=== PATIENT | male | born 1985 | race African-American/Black ===

== ENCOUNTER 2023-05-23 14:37 | Emergency (ER) | payer OTHER, SELFPAY ==
[2023-05-23] VITALS (11 sets, daily range): BP systolic 132–147; BP diastolic 88–109; PULSE 92–126; RESP 5–20; O2SAT 94–99; BMI 45.0
--- NOTE | 2023-05-23 14:48 | ECG_ITS ---
[facility] Test Date: 2023-05-23 Pat Name: ALEJANDRO WILBURN Department: Room: - Gender: Male Pearl Hand: : 1985 Requested By: Order Number: [id number] Reading MD: AHMET RUIZ Measurements Intervals [place] Rate: 125 P: 191 IN: 196 QRS: 151 QRSD: 98 T: 15 QT: 314 QTc: 388 Interpretive Statements Sinus tachycardia 2440 Incomplete right bundle branch block 5120 Possible right ventricular hypertrophy 9150 abnormal ECG No previous ECG available for comparison Electronically Signed On 05-24-2023 7:05:45 EDT by AHMET RUIZ
--- NOTE | 2023-05-23 15:12 | ED_ITS ---
HPI - Arrhythmia/Palpitations General Chief Complaint: Arrhythmia/Palpitations Stated Complaint: FAST HEART RATE Time Seen by Provider: 05/23/23 14:47 Source: patient Mode of arrival: walk-in Limitations: no limitations History of Present Illness HPI narrative: patient is a 37-year-old male who presents to the emergency department with a sensation of palpitations. Patient states he has a history of atrial flutter. 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 He states he developed atrial flutter 1st about ten years ago secondary to caffeine consumption. He states he was awoken from sleep after working midnight to a sensation that his heart is racing. He states it feels similar to previous episodes of atrial flutter. He denies chest pain. He has had minimal shortness of breath. No peripheral edema. No recent illness, fevers, vomiting. He denies any stimulant use, slhl-ped-pzijyns medications. Related Data Home Medications Medication Instructions Recorded Confirmed No Known Home Medications 05/23/23 05/23/23 Allergies Allergy/AdvReac Type Severity Reaction Status Date / Time No Known Drug Allergies Allergy Verified 05/23/23 14:45 Review of Systems ROS Constitutional Denies: fever or chills Ears, nose, mouth, and throat Denies: throat pain Cardiovascular Reports: palpitations; Denies: chest pain Respiratory Reports: shortness of breath Gastrointestinal Denies: nausea or vomiting Genitourinary Denies: painful urination Musculoskeletal Denies: back pain Integumentary/Breast Denies: rash Neurological Denies: headache PFSH PFSH Social History Smoking status: Never smoker Exam Narrative Exam Narrative: Gen.: Awake, alert, in no distress Head: Normocephalic, atraumatic ENT: Moist mucous membranes Respiratory: No respiratory distress, lungs clear bilaterally Cardio: tachycardia Gastrointestinal: Abdomen is soft, nondistended and nontender to palpation Extremities: Moves extremities equally, no injuries noted Psych: Normal mood and affect Neuro: No focal neuro deficit Skin: Warm, dry, intact Constitutional Vital Signs, click to edit/add: Last Vital Signs Pulse 110 H 05/23/23 15:20 Resp 20 05/23/23 15:20 BP 147/92 H 05/23/23 15:35 Pulse Ox 99 05/23/23 14:42 O2 Del Method Room Air 05/23/23 14:42 Course Vital Signs Vital signs: Vital Signs Pulse Rate 123 H 05/23/23 14:42 Respiratory Rate 20 05/23/23 14:42 Blood Pressure 140/109 H 05/23/23 14:42 Pulse Oximetry 99 05/23/23 14:42 Oxygen Delivery Method Room Air 05/23/23 14:42 Pulse Rate 110 H 05/23/23 15:20 Respiratory Rate 20 05/23/23 15:20 Blood Pressure 147/92 H 05/23/23 15:35 Pulse Oximetry 99 05/23/23 14:42 Oxygen Delivery Method Room Air 05/23/23 14:42 MDM - Arrhythmia/Palpitations MDM Narrative Medical decision making narrative: patient treated with IV fluids, IV Cardizem with improvement, patient has converted to sinus rhythm. Repeat EKG shows sinus tachycardia with studies are within normal limits. Patient given IV fluids as well. Patient has had symptoms for two hours, he should follow-up closely with his employment training specialist and return to the Emergency Room if symptoms change or worsen. He was reevaluated by attending physician prior to discharge. Medical Records Attestation: I reviewed the patient's medical records. Lab Data Attestation: I reviewed the patient's lab results. Labs: Lab Results 05/23/23 Range/Units 15:24 WBC 10.8 (4.0-11.0) 10^3/uL RBC 4.94 (4.70-6.10) 10^6/uL Hgb 15.3 (14.0-18.0) g/dL Hct 45.4 (42.0-54.0) % MCV 91.9 (80.0-94.0) fL MCH 31.0 (25.9-34.0) pg MCHC 33.7 (29.9-35.2) g/dL RDW 13.2 (11.0-15.0) % Plt Count 266 (150-450) 10^3/uL MPV 9.7 (9.5-13.5) fL Neut % (Auto) 60.0 (43.0-75.0) % Lymph % (Auto) 30.8 (20.5-60.0) % [place] % (Auto) 6.0 (1.7-12.0) % Eos % (Auto) 2.2 (0.9-7.0) % Baso % (Auto) 0.5 (0.2-2.0) % Neut # (Auto) 6.5 (1.4-6.5) 10^3/uL Lymph # (Auto) 3.3 (1.2-3.8) 10^3/uL [place] # (Auto) 0.7 (0.3-0.8) 10^3/uL Eos # (Auto) 0.2 (0.0-0.7) 10^3/uL Baso # (Auto) 0.1 (0.0-0.1) 10^3/uL Abs Immat Gran (auto) 0.05 H (0.00-0.03) 10^3/uL Imm/Tot Granulo (auto) 0.5 (0.0-0.5) % ECG Data Attestation: I personally reviewed and interpreted this ECG as follows: (rapid atrial rhythm at a rate of 125, no acute ST elevation. No ectopy. EKG reviewed by attending physician) ECG interpretation date: 05/23/23 ECG interpretation time: 15:16 Discharge Plan Discharge Chief Complaint: Arrhythmia/Palpitations Clinical Impression: Palpitations, Atrial flutter Patient Disposition: Home, Self-Care Time of Disposition Decision: 16:34 Condition: Good Prescriptions / Home Meds: No Action No Known Home Medications Instructions: Atrial Flutter (ED), Heart Palpitations (ED) Additional Instructions: Follow up with your employment training specialist Stand Alone Forms: Portal Instructions Referrals: Physician,Non-Staff, MD [Primary Care Provider] - 1 week
[2023-05-23 15:34] LABS: Basophils Absolute Auto 0.1 10^3/uL (0.0-0.1); Basophils Percent Auto 0.5 % (0.2-2.0); Eosinophils Absolute Auto 0.2 10^3/uL (0.0-0.7); Eosinophils Percent Auto 2.2 % (0.9-7.0); Hematocrit 45.4 % (42.0-54.0); Hemoglobin 15.3 g/dL (14.0-18.0); Immature Granulocytes Abs Auto 0.05 10^3/uL (0.00-0.03); Immature Granulocytes Pct Auto 0.5 % (0.0-0.5); Lymphocytes Absolute Auto 3.3 10^3/uL (1.2-3.8); Lymphocytes Percent Auto 30.8 % (20.5-60.0); Mean Corpuscular HGB Conc 33.7 g/dL (29.9-35.2); Mean Corpuscular Volume 91.9 fL (80.0-94.0); Mean Platelet Volume 9.7 fL (9.5-13.5); Monocytes Absolute Auto 0.7 10^3/uL (0.3-0.8); Neutrophils Absolute Auto 6.5 10^3/uL (1.4-6.5); Platelet Count 266 10^3/uL (150-450); Red Blood Count 4.94 10^6/uL (4.70-6.10); Red Cell Distribution Width 13.2 % (11.0-15.0); White Blood Count 10.8 10^3/uL (4.0-11.0)
[2023-05-23] MEDS: DILTIAZEM HCL 25 MG/5 ML VIAL 20 MG IV (15:35)
[2023-05-23] MEDS: 0.9 % SODIUM CHLORIDE 1,000 ML 1000 ML IV (15:37)
[2023-05-23 15:51] LABS: INR 0.97; Partial Thromboplastin Time 28.5 sec (22.3-36.2); Prothrombin Time 10.3 sec (9.0-11.6)
[2023-05-23 16:00] LABS: Alanine Aminotransferase 55 U/L (16-63); Alkaline Phosphatase 91 U/L (46-116); Aspartate Amino Transferase 32 U/L (15-37); BUN Creatinine Ratio 13.3; Bilirubin Total 0.5 mg/dL (0.2-1.0); Calcium 8.8 mg/dL (8.5-10.1); Carbon Dioxide 28.8 mmol/L (21.0-32.0); Chloride 102 mmol/L (98-107); Estimated GFR (African America >60 (>=60); Estimated GFR (Non-African Ame >60 (>=60); Globulin 4.2 g/dL; Glucose 89 mg/dL (74-106); Potassium 3.8 mmol/L (3.5-5.1); Sodium 140 mmol/L (136-145); Total Protein 8.2 g/dL (6.4-8.2); Troponin I High Sensitivity 19.9 pg/mL (4.0-76.1)
--- NOTE | 2023-05-23 17:30 | ECG_ITS ---
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
== END 2023-05-23 16:44 | disposition home or self-care (01) ==
PROVIDERS: Physician Assistant; Emergency Provider Emergency Medicine
DX: R00.2 Palpitations (principal); I48.92 Unspecified atrial flutter
CPT/HCPCS: 36415; 80053; 84484; 85025; 85610; 85730; 93005; 96374; 99284

== ENCOUNTER 2023-10-06 19:32 | Observation (INO) | payer OTHER, SELFPAY ==
[2023-10-06] VITALS (35 sets, daily range): BP systolic 103–166; BP diastolic 58–115; PULSE 78–141; RESP 7–36; TEMP 36.7–36.8; O2SAT 93–98; BMI 42.7; BMI 47.0
--- NOTE | 2023-10-06 19:47 | XR_ITS ---
The [address] [address] Patient Name: ALEJANDRO WILBURN MRN: [id number] date: 1985 Sex: M Assigned Patient Location: ED.MAIN Current Patient Location: ER Accession/Order Number: [id number] Exam Date: 10/06/2023 20:15 Report Date: 10/06/2023 21:05 At the request of: JOSE RAMON STOTU Procedure: XR chest 1V EXAMINATION: XR chest 1V HISTORY: Arrhythmia COMPARISON: None. TECHNIQUE: Portable chest FINDINGS: The lung parenchyma is free of consolidation or infiltrate. No pneumothorax or pleural effusion. The cardiac, mediastinal and hilar contours are normal. The visualized osseous structures exhibit no gross abnormality. XR/XR chest 1V IMPRESSION: No acute cardiopulmonary abnormality. Electronically authenticated by: JOSSE MELCHOR Date: 10/06/2023 21:05
--- NOTE | 2023-10-06 19:47 | ECG_ITS ---
The [facility] Test Date: 2023-10-06 Pat Name: ALEJANDRO WILBURN Department: Room: - Gender: Male Hand Icer: : 1985 Requested By: Order Number: [id number] Reading MD: AHMET RUIZ Measurements Intervals [place] Rate: 134 P: 239 [place]: 172 QRS: 171 QRSD: 96 T: 52 QT: 332 QTc: 411 Interpretive Statements Sinus tachycardia 5120 Possible right ventricular hypertrophy 8003 Consistent with pulmonary disease 9150 abnormal ECG Electronically Signed On 10-07-2023 7:07:03 EST by AHMET RUIZ
--- NOTE | 2023-10-06 19:51 | ED_ITS ---
HPI - Arrhythmia/Palpitations General Chief Complaint: Arrhythmia/Palpitations Stated Complaint: ATRIAL FLUTTER Time Seen by Provider: 10/06/23 19:40 Source: patient Mode of arrival: walk-in Limitations: no limitations History of Present Illness HPI narrative: history of A. Flutter. Last episode 2013. Not on any medications and is followed by Cardiology once a year. Juanpablo developed palpitations similar to past A. flutter and came in . No chest pain, light headedness or dyspnea. Feels well except for the palpitations MD complaint: Reports heart racing and palpitations Related Data Home Medications Medication Instructions Recorded Confirmed No Known Home Medications 05/23/23 05/23/23 Allergies Allergy/AdvReac Type Severity Reaction Status Date / Time No Known Drug Allergies Allergy Verified 05/23/23 14:45 Review of Systems ROS Status of ROS 10 or more systems reviewed and unremarkable except as noted in history and below [facility] Social History Smoking status: Never smoker Exam Constitutional Vital Signs, click to edit/add: Last Vital Signs Temp 98.3 F 10/06/23 19:34 Pulse 116 H 10/06/23 21:46 Resp 17 10/06/23 21:46 BP 118/78 10/06/23 21:46 Pulse Ox 98 10/06/23 19:51 O2 Del Method Room Air 10/06/23 19:50 Common normals: no apparent distress, oriented x3, no limitations, healthy appearing, alert and well nourished [facility] Common normals: normocephalic and head/scalp atraumatic Eye Common normals: EOMs intact bilaterally and conjunctivae normal Chest Common normals: inspection of chest normal and palpation of chest normal Respiratory Common normals: normal respiratory effort, no retractions, no use of accessory muscles and clear to auscultation bilaterally Cardio Common normals: S1 normal heart sound and S2 normal heart sound Rate: tachycardic GI Common normals: Normal to inspection, nondistended, normoactive bowel sounds present, soft to palpation and non-tender Extremity Common normals: normal to inspection and full ROM Neuro Common normals: oriented x3, CN's II-XII intact bilaterally, moves all extremities, no focal motor deficits and no sensory deficits noted Psych Appearance: grossly normal Course Vital Signs Vital signs: Vital Signs Temperature 98.3 F 10/06/23 19:34 Pulse Rate 111 H 10/06/23 19:34 Respiratory Rate 18 10/06/23 19:34 Blood Pressure 166/115 H 10/06/23 19:34 Pulse Oximetry 98 10/06/23 19:34 Oxygen Delivery Method Room Air 10/06/23 19:34 Temperature 98.3 F 10/06/23 19:34 Pulse Rate 116 H 10/06/23 21:46 Respiratory Rate 17 10/06/23 21:46 Blood Pressure 118/78 10/06/23 21:46 Pulse Oximetry 98 10/06/23 19:51 Oxygen Delivery Method Room Air 10/06/23 19:50 MDM - Arrhythmia/Palpitations MDM Narrative Medical decision making narrative: patient has past history of A. Flutter. presents tonight after onset of palpitations in his chest. EKG with A. Flutter rate 130. Patient otherwise asymptomatic. treated with diltiazem bolus and drip. TFTs normal. Troponin x 2 net. cxray clear. Admitted to hospitalist service Lab Data Labs: Lab Results 10/06/23 Range/Units 19:45 WBC 9.1 (4.0-11.0) 10^3/uL RBC 4.78 (4.70-6.10) 10^6/uL Hgb 14.8 (14.0-18.0) g/dL Hct 45.8 (42.0-54.0) % MCV 95.8 H (80.0-94.0) fL MCH 31.0 (25.9-34.0) pg MCHC 32.3 (29.9-35.2) g/dL RDW 12.8 (11.0-15.0) % Plt Count 240 (150-450) 10^3/uL MPV 9.6 (9.5-13.5) fL Neut % (Auto) 58.9 (43.0-75.0) % Lymph % (Auto) 34.5 (20.5-60.0) % [facility] % (Auto) 3.6 (1.7-12.0) % Eos % (Auto) 2.3 (0.9-7.0) % Baso % (Auto) 0.3 (0.2-2.0) % Neut # (Auto) 5.3 (1.4-6.5) 10^3/uL Lymph # (Auto) 3.1 (1.2-3.8) 10^3/uL [facility] # (Auto) 0.3 (0.3-0.8) 10^3/uL Eos # (Auto) 0.2 (0.0-0.7) 10^3/uL Baso # (Auto) 0.0 (0.0-0.1) 10^3/uL Abs Immat Gran (auto) 0.04 H (0.00-0.03) 10^3/uL Imm/Tot Granulo (auto) 0.4 (0.0-0.5) % Sodium 139 (136-145) mmol/L Potassium 3.7 (3.5-5.1) mmol/L Chloride 103 (98-107) mmol/L Carbon Dioxide 28.9 (21.0-32.0) mmol/L Anion Gap 10.8 BUN 11.0 (7.0-18.0) mg/dL Creatinine 1.04 (0.70-1.30) mg/dL Est GFR ( Amer) >60 (>=60) Est GFR (Non-Af Amer) >60 (>=60) BUN/Creatinine Ratio 10.6 Glucose 225 H (74-106) mg/dL Calcium 8.6 (8.5-10.1) mg/dL Troponin I High Sens 19.9 (4.0-76.1) pg/mL TSH 1.400 (0.358-3.740) uIU/mL Free T4 0.93 (0.76-1.46) ng/dL Discharge Plan Discharge Chief Complaint: Arrhythmia/Palpitations Clinical Impression: Atrial flutter Patient Disposition: Admitted as Observation
[2023-10-06 19:53] LABS: Basophils Percent Auto 0.3 % (0.2-2.0); Eosinophils Absolute Auto 0.2 10^3/uL (0.0-0.7); Eosinophils Percent Auto 2.3 % (0.9-7.0); Hematocrit 45.8 % (42.0-54.0); Hemoglobin 14.8 g/dL (14.0-18.0); Immature Granulocytes Abs Auto 0.04 10^3/uL (0.00-0.03); Immature Granulocytes Pct Auto 0.4 % (0.0-0.5); Lymphocytes Absolute Auto 3.1 10^3/uL (1.2-3.8); Lymphocytes Percent Auto 34.5 % (20.5-60.0); Mean Corpuscular HGB Conc 32.3 g/dL (29.9-35.2); Mean Corpuscular Volume 95.8 fL (80.0-94.0); Mean Platelet Volume 9.6 fL (9.5-13.5); Monocytes Absolute Auto 0.3 10^3/uL (0.3-0.8); Monocytes Percent Auto 3.6 % (1.7-12.0); Neutrophils Absolute Auto 5.3 10^3/uL (1.4-6.5); Neutrophils Percent Auto 58.9 % (43.0-75.0); Platelet Count 240 10^3/uL (150-450); Red Blood Count 4.78 10^6/uL (4.70-6.10); Red Cell Distribution Width 12.8 % (11.0-15.0); White Blood Count 9.1 10^3/uL (4.0-11.0)
[2023-10-06] MEDS: DILTIAZEM HCL 25 MG/5 ML VIAL 20 MG IV (20:00)
--- NOTE | 2023-10-06 20:05 | ECG_ITS ---
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
[2023-10-06 20:10] LABS: Free T4 0.93 ng/dL (0.76-1.46)
[2023-10-06 20:16] LABS: Anion Gap 10.8; BUN Creatinine Ratio 10.6; Calcium 8.6 mg/dL (8.5-10.1); Carbon Dioxide 28.9 mmol/L (21.0-32.0); Chloride 103 mmol/L (98-107); Estimated GFR (African America >60 (>=60); Estimated GFR (Non-African Ame >60 (>=60); Glucose 225 mg/dL (74-106); Potassium 3.7 mmol/L (3.5-5.1); Sodium 139 mmol/L (136-145); Troponin I High Sensitivity 19.9 pg/mL (4.0-76.1)
[2023-10-06] MEDS: dilTIAZem HCL 125 MG in 0.9 % SODIUM CHLORIDE 100 ML IV (20:37)
--- NOTE | 2023-10-06 22:01 | PC.NURSE ---
Report called to Eleni in ICU
--- NOTE | 2023-10-06 22:15 | ECG_ITS ---
The [facility] Test Date: 2023-10-07 Pat Name: ALEJANDRO WILBURN Department: Room: [facility] Gender: Male Patient Observer: : 1985 Requested By: [id number] Order Number: [id number] Reading MD: AHMET RUIZ Measurements Intervals [place] Rate: 93 P: 270 NM: 174 QRS: 145 QRSD: 106 T: 56 QT: 396 QTc: 447 Interpretive Statements Atrial fib-flutter 5120 Possible right ventricular hypertrophy 9140 abnormal rhythm ECG Compared to ECG 10/06/2023 20:04:04 No significant changes Electronically Signed On 10-07-2023 7:10:04 EST by AHMET RUIZ
--- NOTE | 2023-10-06 22:48 | P.PN_ITS ---
Progress Note: Subjective Subjective Interval history: PAtient was consuming a smoothie at about 6:45pm and felt palpitations similar to prior episode of aflutter earlier this year. he knew from his first and only other episode in 2013 what it was and came to ED. Found in RVR was given bolus of diltiazem for rate > 130. however, tachycardia persisted and he arrives to the floor with a HR of 104bpm on a rate of 15mg/hr. His palpitations have resolved and he otherwise has no complaints. 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 the patient notes the other episode this year also happened after a smoothie. He currently follows with cardiology in [facility] once per year (dry pan charger moved from [facility] and patient followed her). He is not on rate control med or anticoagulant. SH: negative past or present for drugs, alcohol or tobacco. PMH: obesity; otherwise aflutter ROS: negative other than acute onset tonight. No recent long car/air travel, no shortness of breath. PCP is in [facility] and patient forgets the name. Exam Constitutional Vital Signs, click to edit/add: Last Vital Signs Temp 98.3 F 10/06/23 19:34 Pulse 105 H 10/06/23 22:23 Resp 17 10/06/23 21:46 BP 118/78 10/06/23 21:46 Pulse Ox 98 10/06/23 19:51 O2 Del Method Room Air 10/06/23 19:50 Common normals: no apparent distress [facility] Common normals: normocephalic Chest Common normals: inspection of chest normal Respiratory Common normals: normal respiratory effort, no use of accessory muscles and clear to auscultation bilaterally Cardio Other: tachycardia and irregular GI Common normals: soft to palpation Neuro Common normals: oriented x3 Other: awake, pleaseant and in no distress. Progress Note: Objective Labs Labs: Short CBC 10/06/23 Range/Units 19:45 WBC 9.1 (4.0-11.0) 10^3/uL Hgb 14.8 (14.0-18.0) g/dL Hct 45.8 (42.0-54.0) % Plt Count 240 (150-450) 10^3/uL BMP 10/06/23 19:45 Sodium 139 Potassium 3.7 Chloride 103 Carbon Dioxide 28.9 BUN 11.0 Creatinine 1.04 Glucose 225 H Calcium 8.6 Progress Note: A&P Assessment and Plan (1) Atrial flutter: Assessment and Plan: I will add Cardiazem CD 180mg in hopes of backing off on his rate with the drip. For tonight i have placed anticoagulant for dvt propylaxis. Regular management at this time as he does not have other comorbidities, is hemodynamically stable and is in no distress. GI propylaxis added. Elevated glucose normal which may be long standing or due to smoothie he had just before coming to ED. He is a full code and i have placed in him in OBS status. Telemedicine Attestation Telemedicine Attestation I conducted this encounter from [[facility] office] via secure live, [id number] video conference with the patient, located at [facility] with [seth HAMLIN]. Prior to the interview, the risks and benefits of telemedicine were discussed with the patient and verbal consent was obtained.
[2023-10-06] MEDS: DILTIAZEM HCL 180 MG CAP.ER.24H PO (23:55)
[2023-10-06] MEDS: ENOXAPARIN SODIUM 40 MG/0.4 ML SYRINGE SUBQ (23:55)
[2023-10-07] VITALS (48 sets, daily range): BP systolic 103–147; BP diastolic 65–95; PULSE 70–125; RESP 0–30; TEMP 36.8; O2SAT 92–98
[2023-10-07 04:35] LABS: Basophils Absolute Auto 0.1 10^3/uL (0.0-0.1); Basophils Percent Auto 0.5 % (0.2-2.0); Eosinophils Absolute Auto 0.2 10^3/uL (0.0-0.7); Eosinophils Percent Auto 1.7 % (0.9-7.0); Hematocrit 44.2 % (42.0-54.0); Hemoglobin 14.5 g/dL (14.0-18.0); Immature Granulocytes Abs Auto 0.03 10^3/uL (0.00-0.03); Immature Granulocytes Pct Auto 0.3 % (0.0-0.5); Lymphocytes Absolute Auto 3.2 10^3/uL (1.2-3.8); Lymphocytes Percent Auto 32.3 % (20.5-60.0); Mean Corpuscular HGB Conc 32.8 g/dL (29.9-35.2); Mean Corpuscular Volume 94.6 fL (80.0-94.0); Mean Platelet Volume 9.8 fL (9.5-13.5); Monocytes Absolute Auto 0.4 10^3/uL (0.3-0.8); Monocytes Percent Auto 4.2 % (1.7-12.0); Platelet Count 258 10^3/uL (150-450); Red Blood Count 4.67 10^6/uL (4.70-6.10); White Blood Count 9.8 10^3/uL (4.0-11.0)
[2023-10-07 05:23] LABS: Alanine Aminotransferase 82 U/L (16-63); Albumin Globulin Ratio 0.9; Albumin Level 3.4 g/dL (3.4-5.0); Alkaline Phosphatase 78 U/L (46-116); Anion Gap 9.3; Aspartate Amino Transferase 46 U/L (15-37); BUN Creatinine Ratio 12.2; Bilirubin Total 0.6 mg/dL (0.2-1.0); Calcium 8.7 mg/dL (8.5-10.1); Carbon Dioxide 29.5 mmol/L (21.0-32.0); Chloride 103 mmol/L (98-107); Estimated GFR (African America >60 (>=60); Estimated GFR (Non-African Ame >60 (>=60); Globulin 3.9 g/dL; Glucose 120 mg/dL (74-106); Potassium 3.8 mmol/L (3.5-5.1); Sodium 138 mmol/L (136-145); Total Protein 7.3 g/dL (6.4-8.2)
--- NOTE | 2023-10-07 09:08 | CM.NOTE ---
Rounding with Dr. Lawson and patient's RN Hugo. Discussed following up with cardiology after discharge and possible echocardiogram today.
--- NOTE | 2023-10-07 09:19 | CA_ITS ---
Patient Name: ALEJANDRO WILBURN MR#: [id number] : 1985 Exam Date: 10/07/2023 Ordering Doctor: DR Evan Lawson . ECHOCARDIOGRAM REPORT PROCEDURE: CA ECHO DOPPLER COMPLETE INDICATIONS: Atrial fib/flutter, obstructive sleep apnea COMPARISON: None. DESCRIPTION: COMPLETE ECHOCARDIOGRAM Real-time transthoracic echocardiography with 2D, M-mode, spectral and color flow Doppler performed. QUALITY: Technically difficult due to patients condition. 76 , 385# , BSA 2.93 m2 LEFT VENTRICLE: Normal chamber size. Normal left ventricular wall thickness. Systolic function is difficult to assess due to poor sound transmission but appears preserved. LV EF: Normal left ventricular ejection fraction, (55%). DIASTOLIC: ATRIAL SEPTUM: LEFT ATRIUM: Normal chamber size. RIGHT ATRIUM: Normal chamber size. RIGHT VENTRICLE: Normal chamber size. TRICUSPID VALVE: Normal mobility and thickness. No stenosis with no regurgitation. MITRAL VALVE: Normal mobility and thickness. No evidence of mitral valve stenosis. There is no mitral annular calcification. No mitral regurgitation. AORTIC VALVE: Normal trileaflet appearance. No visible sclerosis. Normal leaflet mobility. No evidence of aortic valve stenosis. No aortic regurgitation. AORTIC ROOT: Normal diameter and appearance. PULMONIC VALVE: Not well visualized. No stenosis. No regurgitation. PERICARDIUM: No evidence of pericardial effusion. IVC: Not well visualized. PLEURA: CONCLUSION: 1. Normal ventricular systolic function. 2. No significant valvular dysfunction. 3. Technically difficult study with poor sound transmission. Adult Echocardiography Procedure Report Left Ventricle LVEDD (3.7 - 5.6 cm): 4.82 cm LVESD (2.2 - 4.0 cm): 3.22 cm LVIVS thickness (0.6 - 1.2 cm): 0.86 cm LVPW thickness (0.5 - 1.0 cm): 0.86 cm LVOT Max Gradient: 1.11 mm[Hg] LVOT Area (cm2): 0.53 m/s Peak Velocity (LVOT): 0.53 m/s LVOT Diameter 2.52 cm Left Atrium Left Atrium Systolic Dimension: 3.33 cm Mitral Valve MV E to A Ratio: 0.86 Mitral Valve A-Wave Peak Velocity: 0.45 m/s Mitral Valve E-Wave Peak Velocity: 0.38 m/s Right Ventricle Aorta AO Root Diam: 3.36 cm Ascending Ao Diam: 3.04 cm Aortic Valve AoV Area (Peak Jonas): 4.18 cm2, 4.18 cm2 Peak Velocity(Antegrade Flow): 0.63 m/s Peak Gradient(Antegrade Flow): 1.57 mm[Hg] Tricuspid Valve Pulmonic Valve Peak Velocity: 0.87 m/s Peak Gradient: 3.06 mm[Hg], 3.01 mm[Hg] Right Atrium Dictated by: Ceasar Lipscomb M.D. on 10/07/2023 at 19:29 Approved by: Ceasar Lipscomb M.D. on 10/07/2023 at 19:33
[2023-10-07] MEDS: OMEPRAZOLE 20 MG CAPSULE.DR PO (09:47)
[2023-10-07] MEDS: APIXABAN 5 MG TABLET PO (09:47)
[2023-10-07] MEDS: METOPROLOL TARTRATE 50 MG TABLET PO (09:47)
--- NOTE | 2023-10-07 10:04 | CM.NOTE ---
Pt will discharge on Eliquis, pt given 30 day free trial card and 10 dollar co-pay card for assistance.
--- NOTE | 2023-10-07 11:12 | P.HP_ITS ---
H&P: HPI History of Present Illness Chief complaint: Palpitations Narrative: 38 year old male with a history of atrial flutter presents to ER with palpitations. First episode about 10 years ago and prior ROBBI cardioversion. Not on medication and follows with cardiology once a year. Similar episode in May and converted with IV cardizem in ER. [place] heart racing and skipping this evening. No chest pain or tightness. No SOB and not lightheaded. [place] like prior episodes and to ER. EKG confirmed rapid aflutter and given IV cardizem. Continued to have tachycardia and started drip then admitted. Denies alcohol use or excess caffeine. Sleep study about 10 years ago showed mild QUINTEN but never treated with PAP therapy. Review of Systems ROS Constitutional Denies: fever, chills or night sweats Cardiovascular Reports: palpitations; Denies: chest pain, edema or lightheadedness Respiratory Denies: shortness of breath, cough or wheezing Gastrointestinal Denies: abdominal pain, nausea, vomiting or diarrhea Genitourinary Denies: painful urination PFSH [facility] Medical History (Updated 10/07/23 @ 07:59 by Evan Lawson MD) Afib ?I48.91 - Unspecified atrial fibrillation (ICD-10) Atrial flutter ?I48.92 - Unspecified atrial flutter (ICD-10) Palpitations ?R00.2 - Palpitations (ICD-10) Paroxysmal atrial flutter ?I48.92 - Unspecified atrial flutter (ICD-10) Family History (Updated 10/06/23 @ 23:20 by Eleni Jeffrey RN) Father Family history of diabetes mellitus Other Family history of COPD (chronic obstructive pulmonary disease) Social History Smoking status: Never smoker Highest level of school completed/degree received: Associate degree: occupational, technical, vocational program Meds Home Medications and Allergies Home Medications Medication Instructions Recorded Confirmed Type No Known Home Medications 05/23/23 05/23/23 History Allergies Allergy/AdvReac Type Severity Reaction Status Date / Time No Known Drug Allergies Allergy Verified 05/23/23 14:45 Exam Constitutional Vital Signs, click to edit/add: Last Vital Signs Temp 98.2 F 10/07/23 10:04 Pulse 96 H 10/07/23 10:00 Resp 18 10/07/23 07:50 BP 145/92 H 10/07/23 07:01 Pulse Ox 94 L 10/07/23 08:00 O2 Del Method Room Air 10/06/23 22:23 Documenting provider has reviewed patient's vital signs: yes Common normals: no apparent distress, oriented x3 and alert HENMT Common normals: normocephalic Eye Common normals: PERRL and EOMs intact bilaterally Respiratory Common normals: normal respiratory effort and clear to auscultation bilaterally Cardio Common normals: no gallops, no murmurs and no rub Rhythm: abnormal rhythm irregularly irregular GI Common normals: Normal to inspection, nondistended, normoactive bowel sounds present and non-tender Extremity Common normals: no pedal edema Results Labs Labs: Short CBC 10/06/23 10/07/23 Range/Units 19:45 04:06 WBC 9.1 9.8 (4.0-11.0) 10^3/uL Hgb 14.8 14.5 (14.0-18.0) g/dL Hct 45.8 44.2 (42.0-54.0) % Plt Count 240 258 (150-450) 10^3/uL BMP 10/06/23 10/07/23 19:45 04:06 Sodium 139 138 Potassium 3.7 3.8 Chloride 103 103 Carbon Dioxide 28.9 29.5 BUN 11.0 9.0 Creatinine 1.04 0.74 Glucose 225 H 120 H Calcium 8.6 8.7 Liver Function 10/07/23 Range/Units 04:06 Total Bilirubin 0.6 (0.2-1.0) mg/dL AST 46 H (15-37) U/L ALT 82 H (16-63) U/L Alkaline Phosphatase 78 (46-116) U/L Albumin 3.4 (3.4-5.0) g/dL Assessment and Plan Assessment and Plan (1) Atrial flutter with rapid ventricular response: (2) QUINTEN (obstructive sleep apnea): (3) Morbid obesity: Plan Presented with rapid flutter on cardizem. Gave oral metoprolol and stopped drip. Echo ordered. Started oral eliquis. Gave dose IV metoprolol. Rate controlled with oral medication and patient felt well. Not lightheaded and rate remained controlled. Discharged home on oral metoprolol and eliquis. F/u with cardiology in 1 week.
[2023-10-07] MEDS: METOPROLOL TARTRATE 5 MG/5 ML VIAL IVP (11:32)
--- NOTE | 2023-10-07 12:53 | ECG_ITS ---
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
== END 2023-10-07 13:17 | disposition home or self-care (01) ==
LOC: ER 22:06 → ICU 22:13
PROVIDERS: Admitting Provider Family Medicine; Emergency Provider Internal Medicine; Visit Provider Family Medicine
DX: I48.92 Unspecified atrial flutter (principal); G47.33 Obstructive sleep apnea (adult) (pediatric); E66.01 Morbid (severe) obesity due to excess calories; Z68.42 Body mass index [BMI] 45.0-49.9, adult
CPT/HCPCS: 36415; 71045; 80048; 80053; 83735; 84439; 84443; 84484; 85025; 93005; 93306; 96365; 96366; 96372; 96375; 96376; 99285; G0378; Q3014

== ENCOUNTER 2025-04-25 07:42 | Outpatient (OUT) | payer OTHER, SELFPAY ==
--- OUTSIDE RECORDS SUMMARY | 2023-03-07 04:00 | XMS_ITS | Continuity of Care Document ---
Author Organization [facility] Address [address] [place] [address] Phone Care Team Providers [facility] R[facility] Name Role Phone Cedric Sydney SALAZARan Unavailable Unavaila ble Allergies, Adverse Reactions, Alerts Substance Reaction Status Criticality No Known Allergies Active No Inform ation Procedures Procedure Date PREV VISIT, EST, AGE 18-39 OFFICE/OUTPATIENT VISIT, EST SURGERY FOR VULVA LESION OFFICE/OUTPATIENT VISIT, EST BACTRIM DS 800 MG /160 MG (6TABLETS) Nov URINE TEST PREV VISIT, EST, AGE 18-39 Sprintec OFFICE/OUTPATIENT VISIT, EST URINE TEST PREV VISIT, EST, AGE 18-39 OFFICE/OUTPATIENT VISIT, EST URINE TEST URINALYSIS NONAUTO W/O SCOPE OFFICE/OUTPATIENT VISIT, EST OFFICE/OUTPATIENT VISIT, EST PREV VISIT, EST, AGE 18-39 EST FP MEDICAID Depo Provera 1 Ml OFFICE/OUTPATIENT VISIT, EST OFFICE/OUTPATIENT VISIT, EST Depo Provera 1 Ml OFFICE/OUTPATIENT VISIT, EST OFFICE/OUTPATIENT VISIT, EST Depo Provera 1 Ml OFFICE/OUTPATIENT VISIT, EST OFFICE/OUTPATIENT VISIT, EST Depo Provera 1 Ml OFFICE/OUTPATIENT VISIT, EST Depo Provera 1 Ml PREV VISIT, EST, AGE 18-39 EST FP MEDICAID Depo Provera 1 Ml OFFICE/OUTPATIENT VISIT, EST OFFICE/OUTPATIENT VISIT, EST Depo Provera 1 Ml URINE TEST OFFICE/OUTPATIENT VISIT, EST OFFICE/OUTPATIENT VISIT, EST Depo Provera 1 Ml URINE TEST OFFICE/OUTPATIENT VISIT, EST URINALYSIS NONAUTO W/O SCOPE Bactrim Depo Provera 1 Ml URINE TEST OFFICE/OUTPATIENT VISIT, EST URINE TEST [facility] SPECIMEN HANDLING (GC/CHLAMYDIA) Jul URINE TEST NEW FP MEDICAID Intraoral-periapical 1st Film 3 Salegirua-pbbdzyrxjz-fjod Additional Jul Limited Oral Eval Bitewig-single Film Advance Directives Directive Yes / No Effective Date File Name No Information Encounters Encounter Description Practice Location Reason(s) For Visit Diagnoses Date Provider Providers Copied on Encounter [facility], [address] [place] [address], [id number] , tel: [phone] [facility] No Information 3 [facility] [address] [place] [address], [id number] , [place]. tel: [phone] PREV VISIT, EST, AGE 18-40 [facility], [address] [place] [address], [id number] , [place] tel: [phone] [facility] annual exam (chief complaint) Irregular periods- well woman with abnormal findingOther fatigueMenorrhagi aBody mass index [BMI] 45.0-49.9, adult 3 [facility] [place] [address], [place], [id number] , [place]. tel: [phone] OFFICE/OUTPA TIENT VISIT, [facility], [address], [place], [id number] , [place] tel: [phone] [facility] Office Visit (chief complaint) Body mass index (BMI) 45.0-49.9, adultCyst of Bartholin's gland 0 Visci DO Anthony. [address], [place], [id number] , [place]. tel: [phone] [facility], [address], [place], [id number] , [place] tel: [phone] [facility] Bartholin cyst (chief complaint) Body mass index (BMI) 45.0-49.9, adultCyst of Bartholin's gland 0 Visci DO Anthony. [address], [place], [id number] , [place]. tel: [phone] OFFICE/OUTPA TIENT VISIT, [facility], [address] [place] [address], [id number] , [place] tel: [phone] [facility] pelvic pain (chief complaint) Body mass index (BMI) 45.0-49.9, adultBartholin cyst 0 [facility] [place] [address], [place], [id number] , [place]. tel: [phone] PREV VISIT, EST, AGE 18-39 [facility], [address] [place] [address], [id number] , [place] tel: [phone] 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 [address], [place], [id number] , [place]. tel:[phone] OFFICE/OUTPA TIENT VISIT, [facility], [address], [place], [id number] , [place] tel: [phone] [facility] Bartholin Cyst Follow up (chief complaint) Body mass index (BMI) 45.0-49.9, adultBartholin cyst 9 [facility] [place] [address], [place], [id number] , [place]. tel: [phone] PREV VISIT, [facility], AGE 18-39 [facility], [address], [place], [id number] , [place] tel: [phone] 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 [address] [place] [address], [id number] , [place]. tel: [phone] OFFICE/OUTPA TIENT VISIT, [facility], [address] [place] [address], [id number] , [place] tel: [phone] [facility] test (chief complaint) Encounter for test, result negativeIrregular periods [facility] [place] [address] [place] [address], [id number] , [place]. tel: [phone] OFFICE/OUTPA TIENT VISIT, [facility], [address] [place] [address], [id number] , [place] tel: [phone] [facility] abnormal pap smear (chief complaint) ASCUS on pap smear of cervix [facility] [place] [address], [place], [id number] , [place]. tel: [phone] PREV VISIT, EST, AGE 18-39 [facility], [address], [place], [id number] , [place] tel: [phone] [facility] annual exam (chief complaint)cont raception (chief complaint) Encounter for surveillance of injectable contraceptiveEnco unter for general cold water machine operator exam without abnormal findingEncounter for STD screening 5 [facility] [place] [address], [place], [id number] , [place]. tel: [phone] OFFICE/OUTPA TIENT VISIT, [facility], [address], [place], [id number] , [place] tel: [phone] [facility] contraception (chief complaint) Other specified contraceptive management 5 [facility] [place] [address], [place], [id number] , [place]. tel: [phone] OFFICE/OUTPA TIENT VISIT, [facility], [address], [place], [id number] , [place] tel: [phone] [facility] contraception (chief complaint) Other specified contraceptive management 5 [facility] [place] [address], [place], [id number] , [place]. tel: [phone] OFFICE/OUTPA TIENT VISIT, [facility], [address], [place], [id number] , [place] tel: [phone] [facility] Depo Supply (chief complaint) Other specified contraceptive management 5 [facility] [place] [address], [place], [id number] , [place]. tel: [phone] OFFICE/OUTPA TIENT VISIT, [facility], [address] [place] [address], [id number] , [place] tel: [phone] [facility] Depo (chief complaint) Other specified contraceptive management Dec-3 0- 4 [facility] [place] [address], [place], [id number] , [place]. tel: [phone] PREV VISIT, EST, AGE 18-39 [facility], [address], [place], [id number] , [place] tel: [phone] [facility] annual visit (chief complaint) Gynecological ExaminationOther specified contraceptive management 0 7- 4 [facility] [place] [address], [place], [id number] , [place]. tel: [phone] OFFICE/OUTPA TIENT VISIT, [facility], [address], [place], [id number] , [place] tel: [phone] [facility] supply visit / depo (chief complaint) Other specified contraceptive management 4 [facility] [place] [address], [place], [id number] , [place]. tel: [phone] OFFICE/OUTPA TIENT VISIT, [facility], [address], [place], [id number] , [place] tel: [phone] [facility] control--Resta rt Depo (chief complaint) Other specified contraceptive management 8 4 [facility] [place] [address], [place], [id number] , [place]. tel: [phone] OFFICE/OUTPA TIENT VISIT, [facility], [address], [place], [id number] , [place] tel: [phone] [facility] urinary urgency (chief complaint) Urinary Tract InfectionOther specified contraceptive management - 4 Sangita Vargas. [address], [place], [id number] , [place]. tel: [phone] [facility], [address] [place] [address], [id number] , [place] tel: [phone] Dental Clinic Dental examination 3 Angus DMD February. [address], [place], [id number] , [place]. tel: [phone] OFFICE/OUTPA TIENT VISIT, EST [facility], [address] [place] [address], [id number] , [place] tel: [phone] [facility] control (chief complaint) Other specified contraceptive managementGeneral counseling on prescription of oral contraceptives 3 Dioni Calderón. [address] [place], [address], [place]. tel: [phone] [facility], [address] [place] [address], [id number] , [place] tel: [phone] [facility] annual visit (chief complaint) Gynecological ExaminationPregna ncy examination or test, negative result 3 Dioni Calderón. [address] [place], [address], [place]. tel: [phone] [facility], [address] [place] [address], [id number] , [place] tel: [phone] Dental Clinic Dental examination 3 Angus DMD February. [address], [place], [id number] , [place]. tel: [phone] Family History Family Member Type Diagnosis Age At Onset Nephew Problem (finding) Alive and well Father Problem (finding) hypertension Mother Problem (finding) multiple sclerosis Father Problem (finding) diabetes melli tus in first degree relative Brother Problem (finding) Heart disease Father Problem (finding) Alive and well Mother Problem (finding) hypertension Mother Problem (finding) diabetes melli tus in first degree relative Brother Problem (finding) Alive and well Sister Problem (finding) Alive and well Immunizations Vaccine Date Status Comments Hep A (adult) refused Source: New Im munization Record Influenza virus vaccine, quadrivalent, split virus, preservative free refused Source: New Immuniza tion Record Payers Payer name Insurance type Covered republican ID Authoriza tion(s) Medical [facility] [id number] Anthem Medicaid [id number] Medicaid Wrap - [employer] [id number] Self Pay Cap 09 [id number] Social History Type Description Quantity Date Captured Comments Alcohol Use Details Unknown Caffeine Use Details Unknown Tobacco Use Status No Information Smoking Status No Information Sex Female Sexual Orientation Straight or heterosexual Gender Identity Female Chief Complaint And Reason For Visit No Information Reason For Referral Reason For Referral No Information Plan Of Treatment Date Type Action Status Goal Influenza vaccine. Due on Ma due Goal PRAPARE ASSESSMENT. Due on M due Goal Hep A. Due on du e Goal Tdap. Due on due Goal Depression scree alirio. Due on due Goal Tdap Vaccine. Due on 2022 due Goal RLP. Due on due Goal RLP. Due on due Goal PRAPARE ASSESSMENT. Due on A due Goal Influenza vaccine. Due on Ap due Goal Depression scree alirio. Due on due Goal Tdap Vaccine. Due on 2022 due Goal Tdap. Due on due Goal Dietary manageme nt education, guidance, and counseling completed Goal Depression scree alirio. Due on due Goal Influenza vaccine. Due on due Goal Tdap. Due on due Goal RLP. Due on due Goal Dietary manageme nt education, guidance, and counseling completed Goal RLP. Due on due Goal Tdap. Due on due Goal Influenza vaccine. Due on due Goal Depression scree alirio. Due on due Goal Dietary manageme nt education, guidance, and counseling completed Goal Influenza vaccine. Due on due Goal Depression scree alirio. Due on due Goal RLP. Due on due Goal Tdap. Due on due Goal Dietary manageme nt education, guidance, and counseling completed Goal Depression scree alirio. Due on due Goal RLP. Due on due Goal Tdap. Due on due Goal Influenza vaccine. Due on due Goal Dietary manageme nt education, guidance, and counseling completed Goal RLP. Due on due Goal Tdap. Due on due Goal Depression scree alirio. Due on due Goal Influenza vaccine. Due on due Goal Dietary manageme nt education, guidance, and counseling completed Goal Tdap. Due on due Goal RLP. Due on due Goal Influenza vaccine. Due on due Goal Dietary manageme nt education, guidance, and counseling completed Goal Td vaccine. Due on 16 due Goal Tdap. Due on due Goal Tdap. Due on due Goal Td vaccine. Due on 16 due Goal Tdap. Due on due Goal Td vaccine. Due on 15 due Goal Depression scree alirio. Due on due Goal Depression scree alirio. Due on due Goal Tdap. Due on due Goal Td vaccine. Due on 15 due Goal Depression scree alirio. Due on due Goal Tdap. Due on due Goal Td vaccine. Due on due Goal Depression scree alirio. Due on due Goal Tdap. Due on due Goal Td vaccine. Due on 15 due Goal Depression scree alirio. Due on due Goal Tdap. Due on due Goal Td vaccine. Due on 14 due Goal Tobacco cessation counseling completed Future Order: Lab Order CBC With Differential/Platelet ([id number]), Collected on: Ordered Future Order: Lab Order TSH+Free T4 ([id number]), Collected on: Ordered History Of Present Illness Encounter Date Complaint History Of Prese nt Illness annual exam Currently pregna nt: no. : 1. induced: 1. Patient is not contemplating . The patient states she uses none for control. Last LMP was 02/01/2023. Her menses is irregular with heavy flow with constant frequency. Negative for dysmenorrhea and menorrhagia. Negative for: breast discharge, breast lump(s), breast pain and breast self exam. She does drink alcohol. Additional information: Patient is here for annual exam. States she has been having irregular menses since Aug 2022. She will bleed for prolong periods of time. This last menses started 02/01/23 and just started to lighten up today. She has been changing a pad every 2 hours for 20 days. She would like medication to regulate menses. She c/o increased fatigue and desires to have CBC and thyroid testing today. She has been abstinent for over 2 years and knows there is no chance of a .. Office Visit Bartholin cyst pelvic pain The patient is p remenopausal. Last menstrual period was 10/22/2019. Additional information: Patient is here for vaginal pain and discomfort. Has had a bartholin cyst in the past and believes she may have another one. Has had the discomfort for approx 2-3 weeks. Has been able to have an orgasm in the past, but for last 3 weeks has been unable to have one. Denies other HAND BUFFER problems at this time. annual exam Currently pregna nt: no. : 1. Parity: : 1. Patient is not contemplating . The patient states she uses oral contraceptive for control. Last LMP was 08/11/2019. Her menses is irregular with normal flow with a frequency of every 28 days. Negative for dysmenorrhea and menorrhagia. Negative for: breast discharge, breast lump(s), breast pain and breast self exam.Negative for Hormone replacement therapy. The patient does not use tobacco. She does drink alcohol. Additional information: Patient is here for annual exam. 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 Denies HAND BUFFER problems at this t cam. States she hasn't taken her OCPs since May and would like to restart. States she only had one menses in Aug without the pills. Has never had a child and is unsure if she desires children in the future. states she is currently not ready to have children. Bartholin Cyst Follow up Patient is here for follow up of a bartholin cyst. Was seen in the ER and a Word Cath was placed, but it fell out the same day. States this is the first time she has ever had a bartholin cyst. Was given 2 different antibiotics and has completed them both. annual exam Currently pregna nt: no. : 1. Parity: Pre-Term: 1. The patient states she uses none for control. Last LMP was 05/02/2018. The patient does not use tobacco. Tobacco cessation has been discussed. She does not drink alcohol. Additional information: Ezekiel is here for annual exam. Currently on OCps and desires to continue at this time. Desires HIV and RPR. Denies other HAND BUFFER problems at this time.. test Patient here for test. (-) result obtained. She is not desiring a . She has not had a period since 07/19/16. At home tests also showed negative. Patient states she is typically regular. ALESSIO Lopez test (comments) Cyndie harrison states she had menses every month until Jul. Now has not had a menses for 3 months. Home tests have all been normal. States she is not on BC because she is not very sexually active. States she is okay if a occurs. Desirs medication to regulate menses abnormal pap smear (comments) [facility] she has had a history of abn paps in the [facility], but it has been several years. abnormal pap smear Onset: sudden . Additional information: Patient had an abnormal pap 6 months ago, 09/29/15 ASCUS HPV-. -ALESSIO WALTERS. annual exam Currently pregna nt: no. The patient states she uses Depo-Provera for control. Last LMP was 09/18/2015. Her menses is with spotting flow with a frequency of q 3 months. There are no associated symptoms. She does not drink alcohol. Additional information: Presently on Depo. Would like to continue. Consent signed. Denies any problems or concerns today. --Jamel Lazar R.N. contraception Presently on Dep o. Desires to continue. Consent signed. Reports some light spotting about every 3 months. States that she is trying to get adequate calcium in diet. --Jamel Lazar R.N. contraception Client presents today for a Depo injection. Last injection. Education/written material provided on calcium. 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 Denies any problems/concerns at this time. Injected into LD, client tolerated without incident. Next scheduled appt 09/29/15 @0830, update/Depo.ALESSIO Patel contraception Patient here for Depo Provera injection. Patient states she is not having any issues or concerns at this time. Patient counciled on importance of taking calcium. Patient verbalized understanding. Patient scheduled to return 07/07/15 @ 8am. Alessio Yanes. Depo Supply Presents on time for Depo. Denies any problems or concerns. Calcium intake education provided. --Jamel Lazar R.N. Depo Supply visit/ de po. Depo IM. Denies concerns. Bradley Hernandez Functional Status Date Functional Assessmen t No Information Instructions Date Instruction Additional Infor lurdes Discussed heavy mens es and fatigue. recommend CBC and TSH to be completed. Patient declines BCM at this time, but would like to regulate with provera. Related to Menorrhagia Discussed irregular menses in detail and probable cause is anovulation. Recommend management with Provera. Rx for provera 10mg 1 tablet daily for 10 days each month day 16-25 of each cycle. # 10 with 12 refills. Related to Irregular periods Encouraged monthly B SE. Recommend calcium 1000mg QD. Encouraged good dietary intake and exercise. Laboratory specimens sent to lab. Patient to call in 2 weeks if desires results.Discussed control options and patient desires to continue Abstinence Related to - well woman with abnormal finding Giving encouragement to exercise Related to Body mass index [BMI] 45.0-49.9, adult Dietary management e ducation, guidance, and counseling Related to Body mass index [BMI] 45.0-49.9, adult Giving encouragement to exercise Related to Body mass index (BMI) 45.0-49.9, adult Dietary management e ducation, guidance, and counseling Related to Body mass index (BMI) 45.0-49.9, adult Giving encouragement to exercise Related to Body mass index (BMI) 45.0-49.9, adult Dietary management e ducation, guidance, and counseling Related to Body mass index (BMI) 45.0-49.9, adult Discussed positive b artholin cyst. Rx for Bactrim Ds 1 PO BID for 10 days. Appt made with Dr. Quesada for follow up and further evaluation. Encouraged to apply heating pad to area TID for 30 mins. Recommend Motrin 800mg PRN discomfort. IF discomfort increases or she has increased concerns patient is to report to ER. Related to Bartholin cyst Giving encouragement to exercise Related to Body mass index (BMI) 45.0-49.9, adult Dietary management e ducation, guidance, and counseling Related to Body mass index (BMI) 45.0-49.9, adult Encouraged to start sprintec today. Last sexual activity was greater than 2 weeks ago. Take 1 pill po QD at HS. If misses a pill take it as soon as she remembers and if she misses two pills take two pills one day and two pills the next day. Encouraged condoms for back up BC and to prevent STDs. test is negative in office today. Related to OCP follow up Rx Encouraged monthly B SE. Recommend calcium 1000mg QD. Encouraged good dietary intake and exercise. Laboratory specimens sent to lab. Patient to call in 2 weeks if desires results.Discussed irregular menses associated with anovulation. Patient states understanding. Does not currently desires a and is unsure if she desires a in the future, so staying on OCPs to regulate menses is what she desiresDiscussed control options and patient desires Sprintec. 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 Patient to call in 1 week for results Related to Screen for STD (sexually transmitted disease) Giving encouragement to exercise Related to Body mass index (BMI) 45.0-49.9, adult Dietary management e ducation, guidance, and counseling Related to Body mass index (BMI) 45.0-49.9, adult Bartholin cyst has r esolved and appears to have healed. There is a slight thickness, but does not to be fluid filled at this time. Encouraged to monitor area and it S/S return to report to the ER. if gets a chronic Bartholin Abscess would need to have gland removed in the future and patient states understanding. No Word Cath present on exam Related to Bartholin cyst Giving encouragement to exercise Related to Body mass index (BMI) 45.0-49.9, adult Dietary management e ducation, guidance, and counseling Related to Body mass index (BMI) 45.0-49.9, adult HIV and RPR sent to lab. Jarrodn to call in 1 week for result Related to - HIV Cervical cultures se nt to lab. Patient to call in 1 week for results Related to Encounter for STD screening Encouraged to contin ue Sprintec with the onset of her next menses. Take 1 pill po QD at HS. If misses a pill take it as soon as she remembers and if she misses two pills take two pills one day and two pills the next day. Encouraged condoms for back up BC and to prevent STDs. Related to OCP follow up Rx Encouraged monthly B SE. Recommend calcium 1000mg QD. Encouraged good dietary intake and exercise. Laboratory specimens sent to lab. Patient to call in 2 weeks if desires results. 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 Encouraged patient to start provera 10 mg day 16-25 of each cycle. Will oder TSH and free T4. Discussed BC options and patient declines at this time. States she is okay if a occurs. Encouraged PNV daily. Related to Irregular periods Pap sent to lab. Jaja lopez to call in 2 weeks for results. If continue to be abnormal recommend a colposcopy. If result is normal then recommend return to normal screening in 1 year. Patient states understanding Related to ASCUS on pap smear of cervix May continue Depo Pr overa. Encouraged calcium 1000mg QD. Recommend condoms for back up BC and to prevent STDs Related to Encounter for surveillance of injectable contraceptive Cervical cultures se nt to lab. Patient to call in 1 week for results Related to Encounter for STD screening Encouraged monthly B SE. Recommend calcium 1000mg QD. Encouraged good dietary intake and exercise. Laboratory specimens sent to lab. Patient to call in 2 weeks if desires results. 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 Encouraged calcium 1000mg QD. Recommend condoms for back up BC and to prevent STDs Related to Other specified contraceptive management May continue Depo Pr overa. Encouraged calcium 1000mg QD. Recommend condoms for back up BC and to prevent STDs Related to Other specified contraceptive management May continue Depo Pr overa. Encouraged calcium 1000mg QD. Recommend condoms for back up BC and to prevent STDs Related to Other specified contraceptive management Advise to use condoms at all george es Advise on safer sexual practices Assessments Type Assessment Date No Information Patient Care Teams Name Effective Dates (start - stop) Status Members No Information
--- OUTSIDE RECORDS SUMMARY | 2025-04-25 07:45 | XMS_ITS | Clinical Summary ---
Author Organization [facility] Address [address] [place] [address] Care Team Providers Care Store Coordinator Name Role Phone Unavailable Primary Care Provider Unavailabl e Social History Tobacco Use Types Packs/Day Years Used Date Smoking Tobacco: Never Assessed Sex and Gender Information Value Date Recorded Sex Assigned at Not on file Legal Sex Male 8:30 PM EST Gender Identity Not on file Sexual Orientation Not on file Plan of Treatment Not on file
--- OUTSIDE RECORDS SUMMARY | 2025-04-25 07:45 | XMS_ITS | Encounter Summary ---
Author Organization [facility] Address [address] [place] [id number] Care Team Providers Care Fruit Picker Name Role Phone Unavailable Primary Care Provider Unavailabl e Source Comments In the event this information is protected by the Federal Confidentiality of Alcohol and Drug AbusePatient Records regulations: The Federal rules restrict any use of the information to criminally investigate or prosecute any alcohol or drug abuse patient.[facility] Encounter Details Date Type Department Care Team (Latest Contact Info) Description 10/12/2023 H&P External-NonCCF Provider, External, THIERRY Do not enter address information under generic External Provider. Social History Tobacco Use Types Packs/Day Years Used Date Smoking Tobacco: Never Passive Smoke Exposure: Never Smokeless Tobacco: Never Alcohol Use Standard Drinks/Week Comments Not Currently 0 (1 standard drink = 0.6 oz pur e alcohol) Area Deprivation Index Answer Date Ronny rded National Score (1-100), lower number is lower ri sk 71 02/21/2023 State Score (1-10), lower number is lower risk N ot on file 02/21/2023 Data from: https://www.neighborhoodatlas.medicine.[facility].edu/. 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 documented as of this encounter Visit Diagnoses Not on filedocumented in this encounter
--- OUTSIDE RECORDS SUMMARY | 2025-04-25 07:45 | XMS_ITS | Clinical Summary ---
Author Organization [facility] Address [address] [place] [address] Care Team Providers Care Aquatic Life Laborer Name Role Phone More Watson DO Primary Care Provider [phone] Social History Tobacco Use Types Packs/Day Years Used Date Smoking Tobacco: Never Assessed Sex and Gender Information Value Date Recorded Sex Assigned at Not on file Legal Sex Male 7:08 PM EDT Gender Identity Not on file Sexual Orientation Not on file Last Filed Vital Signs Vital Sign Reading Time Taken Comments Blood Pressure 128/80 07/01/2022 12:00 PM EDT Pulse - - Temperature - - Respiratory Rate - - Oxygen Saturation - - Inhaled Oxygen Concentration - - Weight 171 kg (378 lb) 07/01/2022 12:00 PM EDT Height 193 cm (6' 4 ) 07/01/2022 12:00 PM EDT Body Mass Index 46.01 07/01/2022 12:00 PM EDT Plan of Treatment Not on file Care Teams Aquatic Life Laborer Relationship Specialty Start Date End Date More Watson DO PCP - General Family Medicine 03/15/23
--- OUTSIDE RECORDS SUMMARY | 2025-04-25 07:45 | XMS_ITS | Clinical Summary ---
Author Organization [facility] Address [address] [place], [place] [id number] Care Team Providers Care Allied Health Professional Name Role Phone Unavailable Primary Care Provider Unavailabl e Allergies No known active allergies Medications ELIQUIS 5 mg tab(s) Take 1 tablet by mouth two times a day. 180 tablet 3 4 07/16/20 25 Active DILT-XR 120 mg 24 hr capsule Take 1 capsule by mouth two times a day. 180 capsule 3 5 Active dilTIAZem XR (DILACOR XR) 120 mg 24 hr capsule Take 1 capsule by mouth two times a day. 180 capsule 1 4 04/15/20 25 Discontinued Active Problems Problem Noted Date Diagnosed Date Sinus tachycardia 02/18/2023 Right ventricular hypertrophy 02/18/2023 Right axis deviation 02/18/2023 RBBB 02/18/2023 Elevated blood pressure reading 02/18/2023 Atrial flutter with rapid ventricular response 0 02/18/2023 Atrial fibrillation 02/18/2023 Elevated blood-pressure read ing, without diagnosis of hypertension 10/15/2019 Obstructive sleep apnea 11/22/2018 Acute non-ST elevation myocardial infarction (NS NAVEEN) 11/07/2010 Encounters Date Type Department Care Team Description 04/13/2025 Refill [facility] Cardiology [address] [place] [address] Mela Nails MD Refill Request from Last 3 Months Social History Tobacco Use Types Packs/Day Years Used Date Smoking Tobacco: Never Passive Smoke Exposure: Never Smokeless Tobacco: Never Tobacco Cessation:Counseling Given: Not Answered Alcohol Use Standard Drinks/Week Comments Not Currently 0 (1 standard drink = 0.6 oz pur e alcohol) Area Deprivation Index Answer Date Ronny rded National Score (1-100), lower number is lower ri sk 76 10/20/2023 State Score (1-10), lower number is lower risk 6 10/20/2023 Data from: https://www.neighborhoodatlas.medicine.[facility].edu/. Last address used for calculation [address] [facility] 10/20/2023 Sex and Gender Information Value Date Recorded Sex Assigned at Not on file Legal Sex Male 10:31 PM EST Gender Identity Not on file Sexual Orientation Not on file Last Filed Vital Signs Vital Sign Reading Time Taken Comments Blood Pressure 151/95 10/01/2024 10:21 AM EST Pulse 86 10/01/2024 10:21 AM EST Temperature - - Respiratory Rate - - Oxygen Saturation 93% 10/01/2024 10:21 AM EST Inhaled Oxygen Concentration - - Weight 173.7 kg (383 lb) 10/01/2024 10:21 AM EST Height 193 cm (6' 4 ) 10/01/2024 10:21 AM EST Body Mass Index 46.62 10/01/2024 10:21 AM EST Plan of Treatment Upcoming Encounters Date Type Department Care Team (Late st Contact Info) Description 09/18/2025 9:00 AM EST Office Visit [facility] Cardiology EPS [address] [place] [address] 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 [place] Maintenance Due Date Last Done Comments Anxiety Screening 2004 Depression Screening 2004 HIV Screening 2004 Hepatitis C Screening 2004 DTaP,Tdap,Td Vaccine (1 - Tdap) 2005 Hepatitis B Vaccine (1 of 3 - 19+ 3-dose series) 09/03 Lipid Screening 2021 Covid-19 Vaccine ( - season) 2024 Influenza Vaccine (Season Ended) 2025 Goals Goal Patient Goal Type Associated Problems Recent Progress Patient-Stated? Author Blood Pressure < 130/80 Blood Pressure 151/95(2023 10:21 AM EST) No Mela Nails MD Insurance
--- OUTSIDE RECORDS SUMMARY | 2025-04-25 07:49 | XMS_ITS | CCD ---
Author Organization [facility] Care Team Providers Care Obstetrics Teacher Name Role Phone YOSEPH KYLE Admitting Unavailable YOSEPH KYLE Attending Unavailable YOSEPH KYLE Consulting Unavailable Unavailable Primary Care Provider Unavailabl e Unavailable Primary Care Provider Unavailabl e Unavailable Primary Care Provider Unavailabl e MELA NAILS Attending Unavailable Medications Current Medications Medication Drug Class(es) Dates Sig (Normalized) Sig (Original) apixaban 5 mg oral tablet (5 sources) Factor Xa Inhibitor Start: 07-16-2024 End: 07-16-2025 take 1 tablet by mouth twice daily ELIQUIS 5 mg tab(s) Take 1 tablet by mouth two times a day. 180 tablet 3 07/16/2024 07/16/2025 Active Start: 10-20-2023 End: 10-19-2024 take 1 tablet by mouth every twelve hours ELIQUIS 5 mg tab(s) Take 1 tablet by mouth every 12 hours. 180 tablet 3 10/20/2023 07/16/2024 Discontinued Comment on above: Take 1 tablet by kimi th every 12 hours. 24 hr dilTIAZem hydrochloride 120 mg extended release oral capsule (2 sources) Calcium Channel Jenny Start: 04-15-2025 take 1 capsule by mouth twice daily DILT-XR 120 mg 24 hr capsule Take 1 capsule by mouth two times a day. 180 capsule 3 04/15/2025 Active Start: 10-01-2024 End: 03-30-2025 take 1 capsule by mouth twice daily dilTIAZem XR (DILACOR XR) 120 mg 24 hr capsule Take 1 capsule by mouth two times a day. 180 capsule 1 10/01/2024 03/30/2025 Active Completed/Discontinued Medications Medication Drug Class(es) Dates Sig (Normalized) Sig (Original) amoxicillin 500 mg / clavulanate 125 mg oral tablet (1 source) Penicillin-class Antibacterial Start: 01-06-2023 End: 02-21-2023 amoxicillin-clavul anic acid (AUGMENTIN) 500-125 mg per tablet metoprolol tartrate 50 mg oral tablet (4 sources) beta-Adrenergic Jenny Start: 07-16-2024 End: 07-16-2025 take 1 tablet by mouth twice daily metoprolol tartrate, short acting, (LOPRESSOR) 50 mg tablet Take 1 tablet by mouth two times a day. 180 tablet 3 07/16/2024 10/01/2024 Discontinued (Clinical Decision) Start: 10-20-2023 End: 10-19-2024 take 1 tablet by mouth every twelve hours metoprolol tartrate, short acting, (LOPRESSOR) 50 mg tablet Take 1 tablet by mouth every 12 hours. 180 tablet 3 10/20/2023 07/16/2024 Discontinued Comment on above: Take 1 tablet by kimi th every 12 hours. Norethindrone (1 source) Start: 02-07-2023 End: 02-21-2023 JENCYCLA 0.35 mg tablet 24 hr venlafaxine 37.5 mg extended release oral capsule (1 source) Serotonin and Norepinephrine Reuptake Inhibitor Start: 12-30-2022 End: 02-21-2023 venlafaxine ER (EFFEXOR XR) 37.5 mg 24 hr capsule verapamil hydrochloride 120 mg extended release oral tablet (1 source) Calcium Channel Jenny Start: 11-16-2022 End: 02-21-2023 verapamil SR (CALAN SR) 120 mg CR tablet ZOLMitriptan 5 mg oral tablet (1 source) Serotonin-1b and Serotonin-1d Receptor Agonist Start: 11-12-2022 End: 02-21-2023 ZOLMitriptan (ZOMIG) 5 mg tablet Problems Active Problems Problem Classification Problem Date Documented Da te Episodic/Chronic Acute myocardial infarction (9 sources) Acute non-ST segment elevation myocardial infarction; Translations: [Non-ST elevation (NSTEMI) myocardial infarction] Onset: 11-07-2010 02-18-2023 Chronic Cardiac dysrhythmias (20 sources) Atrial fibrillation; Translations: [Unspecified atrial fibrillation] Onset: 02-18-2023 Chronic Conduction disorders (9 sources) Right bundle branch block; Translations: [Unspecified right bundle-branch block] Onset: 02-18-2023 02-18-2023 Chronic Other aftercare (1 source) Patient encounter status; Translations: [Encounter for therapeutic drug level monitoring] 04-16-2025 Episodic Other aftercare (1 source) Long-term current use of anticoagulant; Translations: [penitentiary (current) use of anticoagulants] 04-16-2025 Episodic Other and ill-defined heart disease (9 sources) Right ventricular hypertrophy; Translations: [Cardiomegaly] Onset: 02-18-2023 02-18-2023 Chronic Residual codes; unclassified (4 sources) Obstructive sleep apnea (adult) (pediatric); Translations: [OBSTRUCTIVE SLEEP APNEA] Onset: 11-22-2018 Chronic Residual codes; unclassified (9 sources) Obstructive sleep apnea syndrome; Translations: [Obstructive sleep apnea (adult) (pediatric)] Onset: 11-22-2018 02-21-2023 Chronic Past or Other Problems Problem Classification Problem Date Documented Date Episodic/Chronic Cardiac dysrhythmias (9 sources) Sinus tachycardia; Translations: [Tachycardia, unspecified] Onset: 02-18-2023 02-18-2023 Episodic Other circulatory disease (9 sources) Elevated blood pressure; Translations: [Elevated blood-pressure reading, without diagnosis of hypertension] Onset: 02-18-2023 02-18-2023 Episodic Other circulatory disease (9 sources) Elevated blood-pressure reading without diagnosis of hypertension; Translations: [Elevated blood-pressure reading, without diagnosis of hypertension] Onset: 10-15-2019 02-18-2023 Episodic Other screening for suspected conditions (not mental disorders or infectious disease) (9 sources) Right axis deviation; Translations: [Abnormal electrocardiogram [ECG] [EKG]] Onset: 02-18-2023 02-18-2023 Episodic Results Test Name Value Interpretation Reference Range Lawrnece Almazan 10-01-2024 CNOV Office Visit (CARMOB ) ALEJANDRO WILBURN ([id number]) 1985 M Date Time Provider Department 10/01/24 10:30 AM MELA NAILS During your visit today, we recorded the following information about you: Pulse Blood pressure Weight Height 86/minute 151/95 173.7 kg 1.93 m Mela Nails MD 11/11/2024 11:26 PM Signed [facility] [place] [facility] Department of Cardiovascular Medicine SECTION OF CARDIAC PACING and ELECTROPHYSIOLOGY OUTPATIENT VISIT DATE October 01, 2024 OUTPATIENT VISIT TYPE ESTABLISHED PRIMARY CARE PHYSICIAN: To use this Smartlink, specify the provider ID whose address you want to display, e.g., .[email or web address][1 (where 1 is the provider ID). REFERRING PHYSICIAN: SELF CHIEF COMPLAINT: Here for routine follow up for atrial flutter HISTORY OF PRESENT ILLNESS: Mr. Wilburn is a 39 year old male known to Dr Nails with past medical history of NSTEMI, atrial fibrillation/atrial flutter w/RVR, RBBB, RAD, RVH, and sinus tachycardia. He was last seen in office with Dr Nails 10/20/2023 for a hospital follow up. He reports that he has had two episodes of A flutter for which he was seen at [facility]. Both episodes occurred after he drank a smoothie. He felt the irregularity and palpitations with the AF. He denies any associated chest pain or dyspnea. The first episode, he was given Cardizem and converted in ED. The second episode, he was admitted overnight. He was given IV and PO Cardizem which lowered his HR into the 90s bpm. He did not sleep well the night he was admitted. He does not believe he was physically restricted while in AF. He has started wearing an Apple watch that monitors his rhythm. While in AF, he could still feel the palpitations, but was able to stay active. He was discharged while still in AF and converted at some point within a couple days after leaving the hospital. He did not have a cardioversion while in the hospital. His reports that he has been diagnosed with pre-diabetes. He has been tested for DM. He has been started on Eliquis and Metoprolol. He reports that he was diagnosed with mild QUINTEN but was told that he does not need a CPAP. He reports his HR typically runs in the 80-90s bpm. He reports his BP was normal while admitted to the hospital. He was encouraged to consider monitoring his BP at home. Reviewed the nature of AF. Discussed possible triggers for AF. After discussion, he will continue his current regimen, for now. EKG, completed with today's office visit, reveals NSR with a ventricular rate of 89 bpm. PA interval 172 ms. QRS duration 100 ms. QT/QTc 382/464 ms. We had a long discussion regarding his options and treatment of his atrial flutter. He is a very large man and would be a challenging ablation however he is also very young and I would not want to put him on chronic medications as absolutely necessary. At this point in time he thinks he can identify the potential triggers for his arrhythmia he does have obstructive sleep apnea that is currently undiagnosed and untreated. He is in sinus rhythm so I will encourage him to do current therapy for now and let me know if he has more arrhythmias or palpitation. He will go get evaluated for sleep apnea and if the arrhythmia recurs or worsens we could consider an ablation or antiarrhythmic. He returns today for a routine yearly EP follow up with an ECG. Mr. Wilburn is a 39 year old male. Alejandro presents for his office visit appointment this morning accompanied by his . He reports that he has been good. They returned form [place] yesterday evening. He has not had any recent episodes of AF/A Flutter. He was chemically cardioverted and admitted to his local hospital late last year. Discussed consideration for switching medication from Lopressor to Cardizem. He denies any episodes of chest pain or dyspnea. He denies any cardiac-related physical restriction. His reports that he had an episode of dizziness while walking/shopping. PAST CARDIAC HISTORY: PAST MEDICAL HISTORY Diagnosis Date Acute non-ST elevation myocardial infarction (NSTEMI) ([facility]) 2010 Atrial fibrillation ([facility]) Atrial flutter with rapid ventricular response (HCC) Elevated blood pressure reading RBBB Right axis deviation Right ventricular hypertrophy Sinus tachycardia PAST SURGICAL HISTORY Procedure Laterality Date CARDIOVERSION 2013 CARDIOVERSION 2010 CARDIOVERSION 2011 EXTRACTION, ERUPTED TOOTH OR EXPOSED ROOT (ELEVATION AND/OR FORCEPS REMOVAL) [place] [facility] SOCIAL HISTORY Social History Tobacco Use Smoking status: Never Passive exposure: Never Smokeless tobacco: Never Vaping Use Vaping status: Never Used Substance Use Topics Alcohol use: Not Currently Drug use: Never FAMILY HISTORY Family history unknown: Yes [facility]ERG[facility]: (more [facility] not included)... [facility] (CARMO[facility]) ALEJANDRO WILBURN ([id number]) 1985 M Date Time Provider Department 02/23/24 MELA NAILS During your visit today, we recorded the following information about you: Kayleigh Mcmahan 02/23/2024 12:40 PM Signed Pt called to reschedule apt moved apt to Oct 01 Allergies As of Date: 02/23/2024 (No Known Allergies) Date Reviewed: 10/20/2023 Reviewed by: Leda Perez MA - Fully Assessed Reason for Visit: Appointment [[id number]] Prescriptions as of 02/23/2024 - ELIQUIS 5 mg tab(s) Take 1 tablet by mouth every 12 hours. - metoprolol tartrate, short acting, (LOPRESSOR) 50 mg tablet Take 1 tablet by mouth every 12 hours. Problem List As Of Date 02/23/2024 Noted Resolved Sinus tachycardia [R00.0] 02/18/2023 Right ventricular hypertrophy [I51.7] 02/18/2023 Right axis deviation [R94.31] 02/18/2023 RBBB [I45.10] 02/18/2023 Elevated blood pressure reading [R03.0] 02/18/2023 Atrial flutter with rapid ventricular response *02/18/2023 Atrial fibrillation (HCC) [I48.91] 02/18/2023 Acute non-ST elevation myocardial infarction (N*2011 Elevated blood-pressure reading, without diagno*10/15/2019 Obstructive sleep apnea [G47.33] 11/22/2018 Encounter Status:Closed by KAYLEIGH MCMAHAN on 02/23/24 [facility] Ambulatory Clinical Summaryo n 04-17-2021 Ambulatory Clinical Summary {[id number] [facility] Patient Educationon 04-17-20 Patient Education Urology Vasectomy, Care After This sheet gives you information about how to care for yourself after your procedure. Your health care provider may also give you more specific instructions. If you have problems or questions, contact your health care provider. What can I expect after the procedure? After your procedure, it is common to have: ? Mild pain, swelling, redness, or discomfort in your scrotum. ? Some blood coming from your incisions or puncture sites for one or two days. ? Blood in your semen. Follow these instructions at home: Medicines ? Take hdih-pzg-zthfhws and prescription medicines only as told by your health care provider. ? Avoid taking NSAIDs such as aspirin and ibuprofen, because these medicines can make bleeding worse. Activity ? For the first 2 days after surgery, avoid physical activity and exercise that require a lot of energy. Ask your health care provider what activities are safe for you. ? Do not participate in sports or perform heavy physical labor until your pain has improved, or until your health care provider says it is okay. ? Do not ejaculate for at least 1 week after the procedure, or as long as directed. ? You may resume sexual activity 7?10 days after your procedure, or when your health care provider approves. Use a different method of control (contraception) until you have had test results that confirm that there is no sperm in your semen. Scrotal support ? Use scrotal support, such as a jock strap or underwear with a supportive pouch, as needed for one week after your procedure. ? If you feel discomfort in your scrotum, you may remove the scrotal support to see if the discomfort is relieved. Sometimes scrotal support can press on the scrotum and cause or worsen discomfort. ? If your skin gets irritated, you may add some germ-free (sterile), fluffed bandages or a clean washcloth to the scrotal support. General instructions ? Put ice on the injured area: ? Put ice in a plastic bag. ? Place a towel between your skin and the bag. ? Leave the ice on for 20 minutes, 2?3 times a day. ? Check your incisions or puncture sites every day for signs of infection. Check for: ? Redness, swelling, or pain. ? Fluid or blood. ? Warmth. ? Pus or a bad smell. ? Leave stitches (sutures) in place. The sutures will dissolve on their own and do not need to be removed. ? Keep all follow-up visits as told by your health care provider. This is important because you will need a test to confirm that there is no sperm in your semen. Multiple ejaculations are needed to clear out sperm that were beyond the vasectomy site. You will need one test result showing that there is no sperm in your semen before you can resume unprotected sex. This may take 2?4 months after your procedure. ? Do not drive for 24 hours if you were given a sedative to help you relax. Contact a health care provider if: ? You have redness, swelling, or more pain around your incision or puncture site, or in your scrotum area in general. ? You have bleeding from your incision or puncture site. ? You have pus or a bad smell coming from your incision or puncture site. ? You have a fever. ? Your incision or puncture site opens up. Get help right away if: ? You develop a rash. ? You have difficulty breathing. Summary ? After your procedure it is common to have mild pain, swelling, redness, or discomfort in your scrotum. ? Avoid physical activity and exercise that requires a lot of energy for the first 2 days after surgery. ? Put ice on the injured area. Leave the ice on for 20 minutes, 2?3 times a day. ? Do not drive for 24 hours if you were given a sedative to help you relax. This information is not intended to replace advice given to you by your health care provider. Make sure you discuss any questions you have with your health care provider. Document Released: 05/13/2006 Document Revised: 10/06/2018 Document Reviewed: 01/20/2018 [employer] Patient Education ? 2019 [employer] Ayden Arteaga [facility] Urology Office/Clinic Noteon 04-17-2021 Urology Office/Clinic Note Chief Complaint PO VAS HPI Staff Pt is here for a PO VAS that was done 03/27/21. Pt states that he is healing well with no complications at this time. Sterile cups and directions/orders were given. Dysuria: no pain or burning Incomplete bladder emptying: _ Hematuria: denies any blood in urine Frequency: normal Urgency: none Nocturia: none Stream: strong stream Post void dripping: _ Wearing pads/ Depends: _ Urge incontinence: none Stress incontinence: none Incontinence without Sensory Awareness: none Abdominal pain: none Sexual complaints: a little discomfort with certain movement but other mistry doing well. History of Present Illness Reviewed vas. op and path report. There have been no associated fever, chills, flank pain or blood in the urine. Pt. denies any pain/burning with urination at this time. Review of Systems PHQ Score Initial Depression Screen Score: 0 ROS - Provider Constitutional: denies weight loss, denies hot flashes. Eyes: denies eye problems. Gastrointestinal: denies nausea, denies vomiting. Cardiovascular: denies chest pain or angina. Integumentary: no dryness Musculoskeletal: denies musculoskeletal symptoms. ENMT: denies otolaryngeal symptoms. Respiratory: no shortness of breath. Heme/Lymph: denies easy bleeding tendency, denies easy bruising tendency. Psychiatric: no confusion, no anxiety. Genitourinary: denies dysuria, denies hematuria, denies discharge, denies urinary frequency, denies urinary hesitancy, denies nocturia, denies incontinence, denies genital sores, denies decreased libido, and denies erectile dysfunction. Physical Exam Vitals & Measurements HT: 190.0 cm HT: 190 cm WT: 158.0 kg WT: 158 kg BMI: 43.77 General Appearance: alert, no distress, well nourished, well developed male. Genitourinary: normal scrotum, normal testes, normal urethra, normal epididymis, normal vas deferens/spermatic cord. Flank Pain: none. Bladder: nonpalpable. Assessment/Plan Postvasectomy sperm count (Z30.8: Encounter for other contraceptive management) S/p vasectomy 03/27/21. Pt. is healing well and is aware that he is not sterile until he has two negative semen analysis which will be checked after about two months and after 20-30- ejaculations. Pt. should deliver the semen specimen to the lab within 30 min. of ejaculation and he will call one week later to get the results. All questions/concerns were discussed. Pt. to call the office if heencounters any issues prior. Pt. acknowledges understanding. I have reviewed the previous health record information and history for this pt. from Dr. Cohen. Follow-up With When Contact Information STU TURNER, Roly Harper, URL [address] [place] [address]- [phone] Additional Instructions: prn Patient Education Vasectomy, Care After I, Petty Miguel , personally scribed for Dr. Cohen on 04/17/2021 08:24:28. . Documentation recorded by the scribe, Petty Miguel, accurately reflects the services(s) I performed and decisions made by me. Authenticated by Dr. Cohen on 04/17/2021 08:30:52. Problem List/Past Medical History Ongoing No qualifying data Historical No qualifying data Procedure/Surgical History Bilateral vasectomy (03/27/2021). Medications No active medications Allergies No Known Allergies Social History Tobacco Never (less than 100 in lifetime) Tobacco Use:., 04/17/2021 Never (less than 100 in lifetime) Tobacco Use:., 12/29/2020 Family History Diabetes mellitus type 1: Father. [facility] Comment on above: Result Comment: Elec tronically Signed By: Roly COHEN MD\.br\Date and Time Signed: 04/17/21 08:33 EDT\.br\Electronically Co-Signed By: Petty Miguel MA\.br\Date and Time Co-Signed: 04/17/21 08:28 EDT Pathology Noteon 04-06-2021 Pathology Note [id number] D:127 [facility] Operative Reporton Operative Report [id number] D:127 [facility] Ramu 03-27-2021 L --- Specimen: [id number] Received: 03/27/21 Status: MIAH Danielle Num: [id number] Spec Type: Surgical Subm Dr: Roly Cohen MD Tissues: A VAS DEFERENS - sterilization (LT VAS DEFERENS) B VAS DEFERENS - sterilization (RT VAS DEFERENS) Procedures: HE Stain/2, Gross/Micro L2/2 Patient Age/Sex Location Account Attending Physician Alejandro Wilburn 35/M PA [id number] Roly Cohen MD SPEC NUM: [id number] RECD: 03/27/21 STATUS: MIAH DANIELLE NUM: [id number] JAYSON: 03/27/[address]: Roly Cohen MD ENTERED: 03/27/21 [facility] DR: [facility] SPEC TYPE: Surgical DEPT: S ORDERED: HE Stain/2, Gross/Micro L2/2 ORDERED: HE Stain/2, Gross/Micro L2/2 Pathological Diagnosis A. Left vas deferens, vasectomy: - Complete cross section of benign vas deferens B. Right vas deferens, vasectomy: - Complete cross section of benign vas deferens Clinical Information Elective sterilization Gross Description A. Received in formalin labeled with the patient's name, number and left vas deferens is a 1.3 cm in length x 0.3 cm in diameter pascal tubular tissue fragment with adherent pascal-pink fibrous tissue. The specimen is submitted in toto to be cut at embedding in one cassette labeled A1. (NANDA/LEXA) B. Received in formalin labeled with the patient's name, number and right vas deferens is a 1.2 cm in length x 0.2 cm in diameter pascal tubular tissue fragment with adherent red fibrous tissue. The specimen is submitted in toto to be cut at embedding in one cassette labeled B1. (NANDA/LEXA) Specimen: [id number] Received: 03/27/21 Status: MIAH Santos Num: [id number] Spec Type: Surgical Subm Dr: Roly Cohen MD Tissues: A VAS DEFERENS - sterilization (LT VAS DEFERENS) B VAS DEFERENS - sterilization (RT VAS DEFERENS) Procedures: HE Stain/2, Gross/Micro L2/2 Patient: Alejandro Wilburn [id number] (Continued) Specimen: [id number] Received: 03/27/21 (Continued) Signed (signature on file) Farrukh Sharpe MD 03/30/21 1712 Specimen: [id number] Received: 03/27/21 Status: MIAH Santos Num: [id number] Spec Type: Surgical Subm Dr: Roly Cohen MD Tissues: A VAS DEFERENS - sterilization (LT VAS DEFERENS) B VAS DEFERENS - sterilization (RT VAS DEFERENS) Procedures: GIBSON Weber/Klaus Hughes/Meli L2/2 Patient: Alejandro Wilburn [id number] (Continued) Specimen: [id number] Received: 03/27/21 (Continued) Microscopic Description A. One glass slide with H E stained material has been examined. The microscopic findings support the above pathologic diagnosis. B. One glass slide with H E stained material has been examined. The microscopic findings support the above pathologic diagnosis. [id number] Specimen: [id number] Received: 03/27/21 Status: MIAH Danielle Num: [id number] Spec Type: Surgical Subm Dr: Roly Cohen MD Tissues: A VAS DEFERENS - sterilization (LT VAS DEFERENS) B VAS DEFERENS - sterilization (RT VAS DEFERENS) Procedures: HE Stain/2, Gross/Micro L2/2 Patient: Alejandro Wilburn [id number] (Continued) Signed (signature on file) Farrukh Sharpe MD 03/30/21 1712 [facility] Pre-Certification Formon Pre-Certification Form [id number] :127 [facility] Ambulatory Clinical Summaryo n 12-29-2020 Ambulatory Clinical Summary {[id number] [facility] Formson 12-29-2020 Forms [id number] :127 [facility] Urology Office/Clinic Noteon 12-29-2020 Urology Office/Clinic Note Chief Complaint VAs consult HPI 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 Pt is and has 3 children. His and patient is in agreement on this procedure. Pt denies any infections in the past year. Pt denies any urianry concerns at this time. Dysuria: no pain or burning Incomplete bladder emptying: emptying well with no concerns Hematuria: denies any blood in urine Frequency: normal every 2-3 hours Urgency: none Nocturia: none Stream: strong stream with no concerns Post void dripping: none Wearing pads/ Depends: none Urge incontinence: none Stress incontinence: none Incontinence without Sensory Awareness: none Abdominal pain: none Flank pain: none Sexual complaints: no pain with erection and denies any blood in urine. History of Present Illness Reviewed urine and new pt. paper works. There have been no associated fever, chills, flank pain or blood in the urine. Pt. denies any pain/burning with urination at this time. Review of Systems PHQ Score Initial Depression Screen Score: 0 ROS - Provider Constitutional: denies weight loss, denies hot flashes. Eyes: denies eye problems. Gastrointestinal: denies nausea, denies vomiting. Cardiovascular: denies chest pain or angina. Integumentary: no dryness Musculoskeletal: denies musculoskeletal symptoms. ENMT: denies otolaryngeal symptoms. Respiratory: no shortness of breath. Heme/Lymph: denies easy bleeding tendency, denies easy bruising tendency. Psychiatric: no confusion, no anxiety. Genitourinary: denies dysuria, denies hematuria, denies discharge, denies urinary frequency, denies urinary hesitancy, denies nocturia, denies incontinence, denies genital sores, denies decreased libido, and denies erectile dysfunction. Physical Exam Vitals & Measurements HR: 92(Peripheral) RR: 18 BP: 139/90 HT: 190 cm HT: 190.0 cm WT: 158 kg WT: 158.0 kg BMI: 43.77 General Appearance: alert, no distress, well nourished, well developed male. Head: normocephalic . Eyes: normal orbit and globe. ENMT: normal examination of external ears. Chest: Lungs CTA, respirations non labored. Cardiovascular: regular rate and rhythm. Abdomen: soft, non distended, no tenderness, no mass or organomegaly, no hernia. Genitourinary: normal scrotum, normal testes, normal urethra, normal epididymis, normal vas deferens/spermatic cord. Flank Pain: none. Bladder: nonpalpable. Penis: normal shaft, normal glans. Lymph Nodes: unremarkable palpation of the cervical area. Skin: warm, dry, no bruising. Psychiatric: cooperative, affect appropriate for age, normal judgement, euthymic mood. Assessment/Plan 1. Vasectomy evaluation (Z30.09: Encounter for other general counseling and advice on contraception) Pt. is doing well overall w/ his urination at this time. Will schedule Vasectomy. The procedural risks, benefits, details, and treatment alternatives of sterilization have been discussed with the patient today. He understands this procedure is considered permanent, even though vasectomy reversals can be performed. There is no guarantee of successful reversal resulting in , however. Risks discussed include bleeding, infection, failure with in about 1:2500, post-vasectomy syndrome (chronic pain in the testicle or scrotum), possible association with prostate cancer development in the future, and erection problems, among others. Despite these risks, he wishes to proceed. He also understands that he is not considered sterile until a negative semen sample has been received after about 2-3 months after the vasectomy. Full informed consent has been obtained. Will order Local anesthesia. I have reviewed the previous health record information and history for this pt. from Dr. Cohen. Follow-up With When Contact Information Roly COHEN MD [address] [place] [address]- [phone] Additional Instructions: Patient Education Vasectomy I, Petty Miguel , personally scribed for Dr. Cohen on 12/29/2020 09:28:49. . Documentation recorded by the scribe, Petty Miguel, accurately reflects the services(s) I performed and decisions made by me. Authenticated by Dr. Cohen on 12/29/2020 09:35:07. Problem List/Past Medical History Ongoing No qualifying data Historical No qualifying data Medications No active medications Allergies No Known Allergies Social History Tobacco Never (less than 100 in lifetime) Tobacco Use:., 12/29/2020 Family History Diabetes mellitus type 1: Father. Lab Results Ambulatory Point of Care Results Bilirubin Urine Dipstick: Negative (12/29/20 09:17:00) Blood Urine Dipstick: Trace-lysed (12/29/20 09:17:00) Glucose Urine Dipstick: Negative (12/29/20 09:17:00) Ketones Urine Dipstick: Negative (12/29/20 09:17:00) Leukocytes Urine Dipstick: Negative (12/29/20 09:17:00) Nitrite Urine Dipstick: Negative (12/29/20 09:17:00) Protein Urine Dips (more content not included)... Normal [facility] Comment on above: Result Comment: Elec tronically Signed By: Roly COHEN MD\.br\Date and Time Signed: 12/29/20 09:35 EST\.br\Electronically Co-Signed By: Petty Miguel MA\.br\Date and Time Co-Signed: 12/29/20 09:31 EST Vital Signs Date Time Vital Sign Value Performing Clinician Eulalio broderick 10-01-2024 10:21-0500 Body height 193 cm Mela Nails MD Work Phone: [facility] 10-01-2024 10:21-0500 Body mass index (BMI) [Ratio] 46.62 kg/m2 Mela Nails MD Work Phone: [facility] 10-01-2024 10:21-0500 Body weight 173.73 kg Mela Nails MD Work Phone: [facility] 10-01-2024 10:21-0500 Diastolic blood pressure 95 mm[Hg] Mela Nails MD Work Phone: [facility] 10-01-2024 10:21-0500 Heart rate 86 /min Mela Nails MD Work Phone: [facility] 10-01-2024 10:21-0500 SaO2% (BldA) [Mass fraction] 93 % Mela Nails MD Work Phone: [facility] 10-01-2024 10:21-0500 Systolic blood pressure 151 mm[Hg] Mela Nails MD Work Phone: [facility] 02-21-2023 09:47-0400 Body height 193 cm Mela Nails MD Work Phone: [facility] 02-21-2023 09:47-0400 Body weight 176 kg Mela Nails MD Work Phone: [facility] 02-21-2023 09:47-0400 Diastolic blood pressure 101 mm[Hg] Mela Nails MD Work Phone: [facility] 02-21-2023 09:47-0400 Heart rate 101 /min Mela Nails MD Work Phone: [facility] 02-21-2023 09:47-0400 SaO2% (BldA) [Mass fraction] 97 % Mela Nails MD Work Phone: [facility] 02-21-2023 09:47-0400 Systolic blood pressure 141 mm[Hg] Mela Nails MD Work Phone: [facility] Encounters Encounter Date Encounter Type Care Provider Facility Start: 04-13-2025 End: 04-16-2025 Refill Mela Nails MD Work Phone: [facility] Comment on above: Refill Request Start: 10-01-2024 End: 10-01-2024 Office outpatient visit 25 minutes Mela Nails MD Work Phone: [facility] Comment on above: Atrial flutter with rapid ventricular response (HCC) (Primary Dx) Start: 10-01-2024 End: 10-01-2024 ambulatory MELA NAILS Facility:[id number] Start: 07-16-2024 End: 07-16-2024 Refill Mela Nails MD Work Phone: [facility] Comment on above: Refill Request Start: 02-23-2024 Telephone encounter Mela Nails MD Work Phone: [facility] Comment on above: Appointment Start: 10-14-2023 Chart abstracting Leda smith MA Work Phone: [facility] Start: 10-10-2023 Telephone encounter Mela Nails MD Work Phone: [facility] Comment on above: Appointment; Release Of Medical Records Start: 06-02-2023 Telephone encounter Mela Nails MD Work Phone: [facility] Comment on above: Request Outside [facility] Records Patient Question Start: 02-21-2023 End: 02-21-2023 Office outpatient visit 15 minutes Mela Nails MD Work Phone: [facility] Comment on above: Atrial fibrillation, unspecified type (HCC) [I48.91 (ICD-10-CM)] (Primary Dx) Start: 03-25-2022 Telephone encounter Farooq Yu MD Work Phone: [facility] Comment on above: Opened In Error Start: 11-22-2018 End: 11-23-2018 Patient encounter procedure YOSEPH KYLE Facility:[facility]1 Plan of Treatment Date Care Activity Detail Author Start: 09-18-2025 End: 09-18-2025 Patient encounter procedure [facility] Comment on above: 1 year rov. [facility] Start: 07-08-2025 Influenza vaccination Influenz a Vaccine (Season Ended) [facility] Start: 04-16-2025 End: 07-16-2025 CBC W Auto Differential panel - Blood COMPLETE BLOOD COUNT AND DIFFERENTIAL Lab Routine Paroxysmal atrial fibrillation (HCC) Medication monitoring encounter Current use of penitentiary anticoagulation Expected: 04/16/2025, Expires: 07/16/2025 [facility] Work Phone: Comment on above: Expected: 04/16/2025 , Expires: 07/16/2025 Start: 04-16-2025 End: 07-16-2025 Comprehensive metabolic 2000 panel - Serum or Plasma COMPREHENSIVE METABOLIC PANEL Lab Routine Paroxysmal atrial fibrillation (HCC) Medication monitoring encounter Expected: 04/16/2025, Expires: 07/16/2025 [facility] Comment on above: Expected: 04/16/2025 , Expires: 07/16/2025 Start: 10-01-2024 End: 10-01-2024 Patient encounter procedure 10/01/2024 10:30 AM EST Office Visit [facility] [address] [address] Mela Nails MD [address] [place] [address] 1 year rov with EKG. [facility] Comment on above: 1 year rov with EKG. [facility] Start: 07-08-2024 Covid-19 Vaccine ( season) Covid-19 Vaccine ( season) [facility] Start: 07-08-2024 Covid-19 Vaccine ( season) Covid-19 Vaccine ( season) [facility] Start: 07-08-2024 Influenza vaccination [facility] Start: 11-07-2023 Behavioral Health Screening Behavioral Health Screening [facility] Start: 07-08-2023 Covid-19 Vaccine ( season) Covid-19 Vaccine ( season) [facility] Start: 07-08-2023 Influenza vaccination [facility] Start: 11-07-2022 DEPRESSION ASSESSMENT DEPRESSION ASS ESSMENT [facility] Start: 07-08-2022 Influenza vaccination INFLUENZA (#1) [facility] Start: 2021 Lipid 1996 panel - Serum or Plasma Lipid Screening [facility] Start: 2021 Lipid panel Lipid Screening [facility] Start: 2021 LIPID SCREEN LIPID SCREEN [facility] Start: 2005 Hepatitis B Vaccine (1 of 3 - 19+ 3-dose series) Hepatitis B Vaccine (1 of 3 - 19+ 3-dose series) [facility] Start: 2005 Urine microalbumin profile [facility] Start: 2004 Anxiety Screening Anxiety Screening [facility] Start: 2004 Depression Screening Depression Scre ening [facility] Start: 2004 HEPATITIS C SCREENING HEPATITIS C [facility] Start: 2004 Hepatitis C screening Hepatitis C [facility] Start: 2004 HIV SCREENING HIV SCREENING [facility] Start: 2004 HIV screening HIV Screening [facility] Start: 1998 Adult depression screening assessment DEPRESSION SCREENING [facility] Start: 03-04-1987 COVID-19 VACCINE (#1) COVID-19 VACCI NE (#1) [facility] Start: 1986 HEPATITIS B (1 of 3 - 3-dose series) HEPATITIS B (1 of 3 - 3-dose series) [facility] Start: 1986 Hepatitis B Vaccine (1 of 3 - 3-dose series) Hepatitis B Vaccine (1 of 3 - 3-dose series) [facility] ECG B/O W INTERP (ME D OFFICE) ECG B/O W INTERP (MED OFFICE) ECG Routine Atrial flutter with rapid ventricular response (HCC) Ordered: 10/01/2024 [facility] Work Phone: Comment on above: Ordered: 10/01/2024 [facility] c Payers Date Payer Category Payer Private Health Insurance [id number] 2022 Unknown [id number] 1986 Unknown [id number] 1959 Unknown [id number] Social History Date Type Detail Facility Tobacco smoking status [facility] Tobacco smoking consumption unknown [facility] Start: 1985 Sex Assigned At Not on file [facility] Start: 02-18-2023 Tobacco smoking status NDIS Never smoked tobacco [facility] Work Phone: Start: 02-18-2023 Tobacco use and exposure Smokeless tobacco non-user [facility] Work Phone: Start: 02-21-2023 End: 10-01-2024 Alcohol intake Ex-drinker (finding) [facility] Start: 02-21-2023 End: 10-20-2023 History of Social function [facility] Start: 02-21-2023 End: 10-20-2023 Tobacco use panel [facility] National Score (1-100), lower number is lower risk 71 [facility] NEGATED: Highlighted rowStart: NINF History of tobacco use Passive smoker [facility] Work Phone: Goals Date Patient Goal Desired Activity /State Personal health goal Clinical Notes 12-29-2020 to 04-16-2025 Telephone Encounter - Leda Perez MA - 04/16/2025 10:59 AM EDTTelephone Encounter - Leda Perez MA - 04/16/2025 10:59 AM EDTPatient InstructionsPatient Instructions Note Date & Type Note Facility 04-16-2025 Telephone encounter Note NO PCP. He is aware he needs labwork done to monitor. He would like them mailed out to him. He lives in [place] so Im not sure if there is a [facility] facility close to him. Please order labs so I can mail it to him. Leda Perez MA April 16, 2025 11:00 AM [facility] 04-16-2025 Miscellaneous Notes NO PCP. He is aware he needs labwork done to monitor. He would like them mailed out to him. He lives in [place] so Im not sure if there is a [facility] facility close to him. Please order labs so I can mail it to him. Leda Perez MA April 16, 2025 11:00 AM Pt is calling said returning call to Leda Who is pcp Please request last labs from PCP for review due to need for medication monitoring. If no recent labs in the past 6 months, particularly a BMP or CMP, I will order a BMP. I did refill his Cardizem for one year. Thanks, HL Received request for refill of the following medications: Requested Prescriptions Pending Prescriptions Disp Refills DILT-XR 120 mg 24 hr capsule [Pharmacy Med Name: DILT-XR 120 mg capsule, extended release] 180 capsule 1 Sig: Take 1 capsule by mouth two times a day. Patient requested a 90 day refill. Pharmacy verified and updated accordingly. Patient was last seen in cardiology office: 10/01/2024 with Jaqui. Upcoming appointment scheduled: 09/18/2025 with Gay Shook CNP. Labs: No results found for: HB , HCT , WBC , PLT No results found for: CREAT documented in this encounter [facility] 04-16-2025 Telephone encounter Note Pt is calling said returning call to Leda [facility] 04-15-2025 Telephone encounter Note Who is pcp [facility] 04-15-2025 Telephone encounter Note Please request last labs from PCP for review due to need for medication monitoring. If no recent labs in the past 6 months, particularly a BMP or CMP, I will order a BMP. I did refill his Cardizem for one year. Thanks, HL [facility] 04-15-2025 Telephone encounter Note Received request for refill of the following medications: Requested Prescriptions Pending Prescriptions Disp Refills DILT-XR 120 mg 24 hr capsule [Pharmacy Med Name: DILT-XR 120 mg capsule, extended release] 180 capsule 1 Sig: Take 1 capsule by mouth two times a day. Patient requested a 90 day refill. Pharmacy verified and updated accordingly. Patient was last seen in cardiology office: 10/01/2024 with Jaqui. Upcoming appointment scheduled: 09/18/2025 with Gay Shook CNP. Labs: No results found for: HB , HCT , WBC , PLT No results found for: CREAT [facility] 10-01-2024 Instructions Huy Quarles RN - 10/01/2024 10:35 AM EST Heart Healthy diet. Please follow a low cholesterol diet. Limit total intake of fats, oils and sweets. Avoid any fried foods. Fish, turkey, lean meats, nonfat dairy products, steamed vegetables and whole grains are all better choices for a low cholesterol diet. No added salt. Please continue with all current medications at present time. You may stop your Metoprolol Tartrate as discussed and start Diltiazem 120mg twice a day. Please bring a complete list of your current medications to your next office visit. Atrial fibrillation can cause clotting which puts you at risk for a stroke. To reduce the risk of stroke, you are to take an anticoagulation medication. Please notify your physician immediately if any bleeding issues occur, including: any blood in the stool or urine, unusual bruising, petechial skin hemorrhage, or any other bleeding concerns. Please discuss an elective stress test with your PCP. Check your blood pressure at home a couple of times a week, keep a log, and review with your PCP at your next scheduled office visit. documented in this encounter [facility] 10-01-2024 History of Presen t illness Narrative Images from the original note were not included. [facility] [place] [facility] Department of Cardiovascular Medicine SECTION OF CARDIAC PACING and ELECTROPHYSIOLOGY OUTPATIENT VISIT DATE October 01, 2024 OUTPATIENT VISIT TYPE ESTABLISHED PRIMARY CARE PHYSICIAN: To use this Smartlink, specify the provider ID whose address you want to display, e.g., .[email or web address][1 (where 1 is the provider ID). REFERRING PHYSICIAN: SELF CHIEF COMPLAINT: Here for routine follow up for atrial flutter HISTORY OF PRESENT ILLNESS: Mr. Wilburn is a 39 year old male known to Dr Nails with past medical history of NSTEMI, atrial fibrillation/atrial flutter w/RVR, RBBB, RAD, RVH, and sinus tachycardia. He was last seen in office with Dr Nails 10/20/2023 for a hospital follow up. He reports that he has had two episodes of A flutter for which he was seen at [facility]. Both episodes occurred after he drank a smoothie. He felt the irregularity and palpitations with the AF. He denies any associated chest pain or dyspnea. The first episode, he was given Cardizem and converted in ED. The second episode, he was admitted overnight. He was given IV and PO Cardizem which lowered his HR into the 90s bpm. He did not sleep well the night he was admitted. He does not believe he was physically restricted while in AF. He has started wearing an Apple watch that monitors his rhythm. While in AF, he could still feel the palpitations, but was able to stay active. He was discharged while still in AF and converted at some point within a couple days after leaving the hospital. He did not have a cardioversion while in the hospital. His reports that he has been diagnosed with pre-diabetes. He has been tested for DM. He has been started on Eliquis and Metoprolol. He reports that he was diagnosed with mild QUINTEN but was told that he does not need a CPAP. He reports his HR typically runs in the 80-90s bpm. He reports his BP was normal while admitted to the hospital. He was encouraged to consider monitoring his BP at home. Reviewed the nature of AF. Discussed possible triggers for AF. After discussion, he will continue his current regimen, for now. EKG, completed with today's office visit, reveals NSR with a ventricular rate of 89 bpm. PA interval 172 ms. QRS duration 100 ms. QT/QTc 382/464 ms. We had a long discussion regarding his options and treatment of his atrial flutter. He is a very large man and would be a challenging ablation however he is also very young and I would not want to put him on chronic medications as absolutely necessary. At this point in time he thinks he can identify the potential triggers for his arrhythmia he does have obstructive sleep apnea that is currently undiagnosed and untreated. He is in sinus rhythm so I will encourage him to do current therapy for now and let me know if he has more arrhythmias or palpitation. He will go get evaluated for sleep apnea and if the arrhythmia recurs or worsens we could consider an ablation or antiarrhythmic. He returns today for a routine yearly EP follow up with an ECG. Mr. Wilburn is a 39 year old male. Alejandro presents for his office visit appointment this morning accompanied by his . He reports that he has been good. They returned form [place] yesterday evening. He has not had any recent episodes of AF/A Flutter. He was chemically cardioverted and admitted to his local hospital late last year. Discussed consideration for switching medication from Lopressor to Cardizem. He denies any episodes of chest pain or dyspnea. He denies any cardiac-related physical restriction. His reports that he had an episode of dizziness while walking/shopping. PAST CARDIAC HISTORY: PAST MEDICAL HISTORY Diagnosis Date Acute non-ST elevation myocardial infarction (NSTEMI) ([facility]) 2010 Atrial fibrillation ([facility]) Atrial flutter with rapid ventricular response ([facility]) Elevated blood pressure reading RBBB Right axis deviation Right ventricular hypertrophy Sinus tachycardia PAST SURGICAL HISTORY Procedure Laterality Date CARDIOVERSION 2013 CARDIOVERSION 2010 CARDIOVERSION 2011 EXTRACTION, ERUPTED TOOTH OR EXPOSED ROOT (ELEVATION AND/OR FORCEPS REMOVAL) [place] [facility] SOCIAL HISTORY Social History Tobacco Use Smoking status: Never Passive exposure: Never Smokeless tobacco: Never Vaping Use Vaping status: Never Used Substance Use Topics Alcohol use: Not Currently Drug use: Never FAMILY HISTORY Family history unknown: Yes ALLERGIES: ALLERGIES No Known Allergies MEDICATIONS: metoprolol tartrate, short acting, (LOPRESSOR) 50 mg tablet Take 1 tablet by mouth two times a day. ELIQUIS 5 mg tab(s) Take 1 tablet by mouth two times a day. REVIEW OF SYSTEMS: 10 system ROS was performed and is negative except except that which is listed in the HPI PHYSICAL EXAMINATION: BP 151/95 (BP Site: Left Arm, BP Position: Sitting, BP Cuff Size: Regular Adult) Pulse 86 Ht 193 cm (6' 4 ) Wt (!) 173.7 kg (383 lb) SpO2 93% BMI 46.62 kg/m General: Well appearing, in no acute distress. Skin: No clubbing, no cyanosis. Eyes: Extra ocular movements intact Oropharynx: Teeth in good repair. Neck: No jugular venous distention, no carotid bruits, carotids have a normal upstroke, no palpable thyromegaly. Lungs: Clear to auscultation bilaterally, no wheezing or rhonchi. Heart: Regular rhythm, PMI not displaced, S1, S2 normal, no S3, no S4, no heaves, no rub and no murmur. Abdomen: Soft, nontender, bowel sounds normal, no palpable organomegaly, no bruits. Extremities: No peripheral edema . Grade 2/4 distal pulses bilaterally. Neuro: Oriented to person, place and time, alert, cooperative, gait coordinated. CARDIOVASCULAR MEDICINE TESTING: EKG Report [facility] DOS: 10/07/2023 Impression: Vent rate: 89 bpm PA int: 172 ms QRS: 100 ms QT/QTc: 382/464 ms Normal sinus rhythm Normal ECG Echocardiogram Report [facility] DOS: 10/07/2023 Impression: 1. Normal ventricular systolic function 2. No significant valvular dysfunction 3. Technically difficult study with poor sound transmission. CXR Report [facility] DOS: 10/06/2023 Impression: The lung parenchyma is free of consolidation or infiltrate. No pneumothorax or pleural effusion. Th cardiac, mediastinal and hilar contours are normal. The visualized associus structures exhibit no gross abnormalities. NM Cardiac Stress Test Report [facility] DOS: 11/17/2012 Impression: 1. 2 fixed defects. No reversible ischemia identified. I have personally reviewed the Electrocardiogram. Assessment IMPRESSION: Mr. Wilburn is a 39 year old male. Alejandro presents for his office visit appointment this morning accompanied by his . He reports that he has been good. They returned form [place] yesterday evening. He has not had any recent episodes of AF/A Flutter. He was chemically cardioverted and admitted to his local hospital late last year. Discussed consideration for switching medication from Lopressor to Cardizem. He denies any episodes of chest pain or dyspnea. He denies any cardiac-related physical restriction. His reports that he had an episode of dizziness while walking/shopping. EKG, completed with today's office visit, reveals NSR with a ventricular rate of 83 bpm. PA interval 172 ms. QRS duration 100 ms. QT/QTc 390/458 ms. CHADS2-Vasc Score Breakdown 1 Total Score 1 History of vascular disease PLAN AND RECOMMENDATIONS: Problem List Items Addressed This Visit Cardiovascular Atrial flutter with rapid ventricular response (HCC) - Primary Relevant Orders ECG B/O W INTERP (MED OFFICE) CONTACT INFORMATION: Leda Perez MA documented in this encounter [facility] 10-01-2024 Note HNO ID: [id number] Author: EMLA NAILS MD Service: ? Author Type: Physician Type: Progress Notes Filed: 11/11/2024 23:26 Note Text: [facility] [place] [facility] Department of Cardiovascular Medicine SECTION OF CARDIAC PACING and ELECTROPHYSIOLOGY OUTPATIENT VISIT DATE October 01, 2024 OUTPATIENT VISIT TYPE ESTABLISHED PRIMARY CARE PHYSICIAN: To use this Smartlink, specify the provider ID whose address you want to display, e.g., .[email or web address][1 (where 1 is the provider ID). REFERRING PHYSICIAN: SELF CHIEF COMPLAINT: Here for routine follow up for atrial flutter HISTORY OF PRESENT ILLNESS: Mr. Wilburn is a 39 year old male known to Dr Nails with past medical history of NSTEMI, atrial fibrillation/atrial flutter w/RVR, RBBB, RAD, RVH, and sinus tachycardia. He was last seen in office with Dr Nails 10/20/2023 for a hospital follow up. He reports that he has had two episodes of A flutter for which he was seen at [facility]. Both episodes occurred after he drank a smoothie. He felt the irregularity and palpitations with the AF. He denies any associated chest pain or dyspnea. The first episode, he was given Cardizem and converted in ED. The second episode, he was admitted overnight. He was given IV and PO Cardizem which lowered his HR into the 90s bpm. He did not sleep well the night he was admitted. He does not believe he was physically restricted while in AF. He has started wearing an Apple watch that monitors his rhythm. While in AF, he could still feel the palpitations, but was able to stay active. He was discharged while still in AF and converted at some point within a couple days after leavingthe hospital. He did not have a cardioversion while in the hospital. His reports that he has been diagnosed with pre-diabetes. He has been tested for DM. He has been started on Eliquis and Metoprolol. He reports that he was diagnosed with mild QUINTEN but was told that he does not need a CPAP. He reports his HR typically runs in the 80-90s bpm. He reports his BP was normal while admitted to the hospital. He was encouraged to consider monitoring his BP at home. Reviewed the nature of AF. Discussed possible triggers for AF. After discussion, he will continue his current regimen, for now. EKG, completed with today's office visit, reveals NSR with a ventricular rate of 89 bpm. PA interval 172 ms. QRS duration 100 ms. QT/QTc 382/464 ms. We had a long discussion regarding his options and treatment of his atrial flutter. He is a very large man and would be a challenging ablation however he is also very young and I would not want to put him on chronic medications as absolutely necessary. At this point in time he thinks he can identify the potential triggers for his arrhythmia he does have obstructive sleep apnea that is currently undiagnosed and untreated. He is in sinus rhythm so I will encourage him to do current therapy for now and let me know if he has more arrhythmias or palpitation. He will go get evaluated for sleep apnea and if the arrhythmia recurs or worsens we could consider an ablation or antiarrhythmic. He returns today for a routine yearly EP follow up with an ECG. Mr. Wilburn is a 39 year old male. Alejandro presents for his office visit appointment this morning accompanied by his . He reports that he has been good. They returned form [place] yesterday evening. He has not had any recent episodes of AF/A Flutter. He was chemically cardioverted and admitted to his local hospital late last year. Discussed consideration for switching medication from Lopressor to Cardizem. He denies any episodes of chest pain or dyspnea. He denies any cardiac-related physical restriction. His reports that he had an episode of dizziness while walking/shopping. PAST CARDIAC HISTORY: PAST MEDICAL HISTORY Diagnosis Date Acute non-ST elevation myocardial infarction (NSTEMI) (FORMERLY [facility]) 2010 Atrial fibrillation ([facility]) Atrial flutter with rapid ventricular response ([facility]) Elevated blood pressure reading RBBB Right axis deviation Right ventricular hypertrophy Sinus tachycardia PAST SURGICAL HISTORY Procedure Laterality Date CARDIOVERSION 2013 CARDIOVERSION 2010 CARDIOVERSION 2011 EXTRACTION, ERUPTED TOOTH OR EXPOSED ROOT (ELEVATION AND/OR FORCEPS REMOVAL) [place] [facility] SOCIAL HISTORY Social History Tobacco Use Smoking status: Never Passive exposure: Never Smokeless tobacco: Never Vaping Use Vaping status: Never Used Substance Use Topics Alcohol use: Not Currently Drug use: Never FAMILY HISTORY Family history unknown: Yes ALLERGIES: ALLERGIES No Known Allergies MEDICATIONS: metoprolol tartrate, short acting, (LOPRESSOR) 50 mg tablet Take 1 tablet by mouth two times a day. ELIQUIS 5 mg tab(s) Take 1 tablet by mouth two times a day. REVIEW OF SYSTEMS: 10 system ROS was performed and is negativ (more content not included)... [facility] 07-16-[address] Nails reviewed labs drawn 10/07/2023 and previously scanned to chart which include CBC, CMP, LFT, TSH and Troponin. Huy Quarles RN July 16, 2024 1:27 PM [facility] 07-16-[address] Nails reviewed labs drawn 10/07/2023 and previously scanned to chart which include CBC, CMP, LFT, TSH and Troponin. Huy Quarles RN July 16, 2024 1:27 PM Patient called requesting the following refill. Requested Prescriptions Pending Prescriptions Disp Refills metoprolol tartrate, short acting, (LOPRESSOR) 50 mg tablet 180 tablet 3 Sig: Take 1 tablet by mouth two times a day. ELIQUIS 5 mg tab(s) 180 tablet 3 Sig: Take 1 tablet by mouth two times a day. Patient last appointment: 02/23/2024 Patient Phone numbers: [phone] (home) Request is for script(s) to be escript to pharmacy. [facility] in [place], [place] Alyssa Baez documented in this encounter [facility] 07-16-2024 Telephone encounter Note Patient called requesting the following refill. Requested Prescriptions Pending Prescriptions Disp Refills metoprolol tartrate, short acting, (LOPRESSOR) 50 mg tablet 180 tablet 3 Sig: Take 1 tablet by mouth two times a day. ELIQUIS 5 mg tab(s) 180 tablet 3 Sig: Take 1 tablet by mouth two times a day. Patient last appointment: 02/23/2024 Patient Phone numbers: [phone] (home) Request is for script(s) to be escript to pharmacy. [facility] in [place], [place] Alyssa Baez [facility] 02-23-2024 Miscellaneous Notes Pt called to reschedule apt moved apt to Nov 25 documented in this encounter [facility] 10-14-2023 History of Presen t illness Narrative Summary: Cardiac Reports Echocardiogram Report [facility] DOS: 10/07/2023 Impression: 1. Normal ventricular systolic function 2. No significant valvular dysfunction 3. Technically difficult study with poor sound transmission. [place] Cardiac Stress Test Report [facility] DOS: 11/17/2012 Impression: 1. 2 fixed defects. No reversible ischemia identified. EKG Report [facility] DOS: 10/07/2023 Impression: Vent rate: 80 bpm PA int: 000 ms QRS: 108 ms QT/Qtc: 392/427 ms Atrial flutter Incomplete right bundle branch block Possible right ventricular hypertrophy Abnormal ECG CXR Report [facility] DOS: 10/06/2023 Impression: The lung parenchyma is free of consolidation or infiltrate. No pneumothorax or pleural effusion. Th cardiac, mediastinal and hilar contours are normal. The visualized associus structures exhibit no gross abnormalities. documented in this encounter [facility] 10-13-2023 Miscellaneous Notes LMOM Trina Dennis Pt is calling about apt asking for a call back LMOM Trina Dennis Advised they call and confirm appt. Trina Dennis Dr. Nails has reviewed the records from [facility]. Would you please offer Mr. Wilburn an appointment with Dr. Nails on 10/20/2023 at 1000 (double book)? Thank you! Huy Quarles RN October 13, 2023 11:03 AM Please advise for an appt. Trina Dennis Received records from [facility].Scanned into chart and will place in bin for review. Requested records from [facility] Pt is calling pt was hospitalized at [facility] needs a follow up documented in this encounter [facility] 06-10-2023 Miscellaneous Notes Call returned to pt at this time. A voicemail was left on his cell phone notifying that Dr. Nails had reviewed his ED visit record and informing of her comments and recommendations as below. He was encouraged to call back for any recurrent episodes of atrial flutter or for any clarification of Dr. Nails comments and recommendations. He was encouraged to call back for any questions or concerns. Huy Quarles RN June 10, 2023 4:00 PM Medical records received from [facility] included two copies of EKG performed post-conversion to ST. No copy of EKG performed while pt was in A flutter was included in the ED visit records received, although a description of that EKG is included in the ED physician note. Dr. Nails has reviewed these records. She stated that she is not inclined to want to change Mr. Wilburn regimen at this time. He may be offered a sooner appointment for 1-2 months from now if he would like to be seen prior to his next scheduled appointment in February,. Otherwise, he should continue to try to maintain his hydration and avoid stimulants. He would be requested to call if he has recurrent episodes of atrial flutter. He could be ordered an event monitor, as well. Huy Quarles RN June 10, 2023 2:00 PM Pt returned call at this time. He reports that, at the time that he arrived to the ED and had an EKG, his HR was in the 130s bpm. Initially, he was told that he was not in Atrial flutter. Subsequently, he was treated, medicated and converted to sinus rhythm. Eventually, the A flutter was confirmed by the ED doctor. He reports that he has been doing good since that episode. Reviewed Dr. Nails comments and recommendations as below and as had been messaged on his voicemail. He was informed that, once the records were obtained from the hospital, Dr. Nails would review and he would be contacted. He was encouraged to call back for any other questions or concerns. He verbalized understanding and expressed appreciation for the return call. Huy Quarles RN June 03, 2023 4:08 PM Call returned to pt at this time. Voicemail left on cell phone notifying that this office has not yet received his medical record from his recent ED visit - which is not uncommon. Dr. Nails would like to review his record, especially his EKG, from that visit. Another attempt will be made to contact him next week. Huy Quarles RN June 03, 2023 4:00 PM Call returned to pt at this time. Voicemail left on cell phone notifying that this office had requested the records from his ED visit for Dr. Nails to review. He was encouraged to call back to discuss. Huy Quarles RN June 02, 2023 4:01 PM A request has been made to receive medical records from [facility]. Dr. Nails has been informed. She would like to review the EKG from his ED visit. As long as Alejandro is feeling well at this time, she would be inclined to continue his current regimen without any changes. If he would like, he could be offered an appointment for follow up in 2-3 months for recheck. Huy Quarles RN June 02, 2023 10:38 AM Pt is calling states he was in the ER last Tuesday at [facility], pt was in A Flutter, gave pt IV medication which put him back in NSR. Pt wake up had rapid HR pt then went to the ER. Pt has maintained NSR since ER told pt to call and follow up w us. Pt works midnights so the best time to call is between 3:30pm-4:30pm documented in this encounter [facility] 06-09-2023 Miscellaneous Notes Summary: 2nd request Faxed 2nd record request to [facility]. Summary: records Faxed record request to [facility]. Summary: Records Elsa Knowles, Mr. Wilburn called this morning and said he was seen at [facility] on Tuesday night for atrial flutter. Could you please see they will send us a copy of his visit report/medical record? thank you! documented in this encounter [facility] 02-21-2023 Instructions Huy Quarles RN - 02/21/2023 9:57 AM EDT Images from the original note were not included. Heart Healthy diet. Please follow a low cholesterol diet. Limit total intake of fats, oils and sweets. Avoid any fried foods. Fish, turkey, lean meats, nonfat dairy products, steamed vegetables and whole grains are all better choices for a low cholesterol diet. No added salt. Please continue with all current medications at present time. Please bring a complete list of your current medications to your next office visit. Monitor your BP at home, keep a log and review with your PCP at your next office visit - sooner if you notice your BP is consistently high at home. documented in this encounter [facility] 02-21-2023 History of Presen t illness Narrative Images from the original note were not included. [facility] [place] [facility] Department of Cardiovascular Medicine SECTION OF CARDIAC PACING and ELECTROPHYSIOLOGY OUTPATIENT VISIT DATE February 21, 2023 OUTPATIENT VISIT TYPE ESTABLISHED REFERRING PHYSICIAN: SELF CHIEF COMPLAINT: Here for routine follow up for his atrial flutter. HISTORY OF PRESENT ILLNESS: Mr. Wilburn is a 37 year old male known to Dr Nails with past medical history of NSTEMI, atrial fibrillation/atrial flutter w/RVR, RBBB, RAD, RVH, and sinus tachycardia. He was last seen in office with Dr Nails 03/04/2021. He returns today for a routine follow up. Mr. Wilburn is a 37 year old male. Mr. Wilburn reports that he has been good. He denies any known arrhythmias since his last office visit about two years ago. He has remained pretty active, trying to work out more. His PCP manages his BP. 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 He denies any palpitations. He denies any episodes of chest pain or dyspnea. He denies any chest pain with exertion. He denies any cardiac-related complaint He denies chest pain, shortness of breath, orthopnea, cough, edema, palpitations, PND, lightheadedness or syncope. PAST CARDIAC HISTORY: PAST MEDICAL HISTORY Diagnosis Date Acute non-ST elevation myocardial infarction (NSTEMI) (FORMERLY [facility]) 2010 Atrial fibrillation ([facility]) Atrial flutter with rapid ventricular response ([facility]) Elevated blood pressure reading RBBB Right axis deviation Right ventricular hypertrophy Sinus tachycardia PAST SURGICAL HISTORY Procedure Laterality Date EXTRACTION, ERUPTED TOOTH OR EXPOSED ROOT (ELEVATION AND/OR FORCEPS REMOVAL) [place] [facility] SOCIAL HISTORY Social History Tobacco Use Smoking status: Never Passive exposure: Never Smokeless tobacco: Never Vaping Use Vaping Use: Never used Substance Use Topics Alcohol use: Not Currently Drug use: Never FAMILY HISTORY Family history unknown: Yes ALLERGIES: ALLERGIES No Known Allergies MEDICATIONS: No prescriptions on file. REVIEW OF SYSTEMS: 10 system ROS was performed and is negative except except that which is listed in the HPI PHYSICAL EXAMINATION: BP 141/101 (BP Site: Right Arm, BP Position: Sitting, BP Cuff Size: Large Adult) Pulse 101 Ht 193 cm (6' 4 ) Wt (!) 176 kg (388 lb) SpO2 97% BMI 47.23 kg/m General: Well appearing, in no acute distress. Skin: No clubbing, no cyanosis. Eyes: Extra ocular movements intact Oropharynx: Teeth in good repair. Neck: No jugular venous distention, no carotid bruits, carotids have a normal upstroke, no palpable thyromegaly. Lungs: Clear to auscultation bilaterally, no wheezing or rhonchi. Heart: Regular rhythm, PMI not displaced, S1, S2 normal, no S3, no S4, no heaves, no rub and no murmur. Abdomen: Soft, nontender, bowel sounds normal, no palpable organomegaly, no bruits. Extremities: No peripheral edema . Grade 2/4 distal pulses bilaterally. Neuro: Oriented to person, place and time, alert, cooperative, gait coordinated. CARDIOVASCULAR MEDICINE TESTING: Electrocardiogram: Echocardiogram Report [facility] DOS: 03/31/2012 Impression: Normal two-dimensinal and Doppler echocardiogram. Doppler flow studies indicate no intracardiac shunt. EF 55%. [place] Cardiac Stress Test Report [facility] DOS: 11/17/2012 Impression: 1. 2 fixed defects. No reversible ischemia identified. EKG Report [facility] DOS: 03/04/2021 Impression: sinus tachycardia with a ventricular rate of 111 bpm. I have personally reviewed the Electrocardiogram. Assessment IMPRESSION: Mr. Wilburn is a 37 year old male. Mr. Wilburn reports that he has been good. He denies any known arrhythmias since his last office visit about two years ago. He has remained pretty active, trying to work out more. His PCP manages his BP. 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 He denies any palpitations. He denies any episodes of chest pain or dyspnea. He denies any chest pain with exertion. He denies any cardiac-related complaint. He was encouraged to try to maintain his hydration, monitor his BP at home. He is doing well overall. No recurrence of his atrial flutter or fibrilation. No atrial fibrillation that he has felt. Discussed his atriual flutter and fib. For now no further arrhythmias. Continue just to follow - since not on any medications can follow every 2 years EKG, completed with today's office visit, reveals NSR with a ventricular rated of 92 bpm. PLAN AND RECOMMENDATIONS: Problem List Items Addressed This Visit Cardiovascular Atrial fibrillation (HCC) - Primary CONTACT INFORMATION: Leda Perez MA documented in this encounter [facility] 12-29-2020 Note Vasectomy Vasectomy is a procedure in which the tube that carries sperm from the testicle to the urethra (vas deferens) is tied. It may also be cut. The procedure blocks sperm from going through the vas deferens and penis during ejaculation. This ensures that sperm does not go into the vagina during sex. Vasectomy does not affect your sexual desire or performance, and does not prevent sexually transmitted diseases. Vasectomy is considered a permanent and very effective form of control (contraception). The decision to have a vasectomy should not be made during a stressful situation, such as after the loss of a or a divorce. You and your partner should make the decision to have a vasectomy when you are sure that you do not want children in the future. Tell a health care provider about: ? Any allergies you have. ? All medicines you are taking, including vitamins, herbs, eye drops, creams, and hvjz-jnt-isgkcai medicines. ? Any problems you or family members have had with anesthetic medicines. ? Any blood disorders you have. ? Any surgeries you have had. ? Any medical conditions you have. What are the risks? Generally, this is a safe procedure. However, problems may occur, including: ? Infection. ? Bleeding and swelling of the scrotum. ? Allergic reactions to medicines. ? Failure of the procedure to prevent . There is a very small chance that the cut ends of the vas deferens may reconnect (recanalization), meaning that you could still make a woman . ? Pain in the scrotum that continues after healing from the procedure. What happens before the procedure? ? Ask your health care provider about: ? Changing or stopping your regular medicines. This is especially important if you are taking diabetes medicines or blood thinners. ? Taking lfkh-jjp-qtqxvja medicines, vitamins, herbs, and supplements. ? Taking medicines such as aspirin and ibuprofen. These medicines can thin your blood. Do not take these medicines unless your health care provider tells you to take them. ? You may be asked to shower with a germ-killing soap. ? Plan to have someone take you home from the hospital or clinic. What happens during the procedure? ? To lower your risk of infection: ? Your health care team will wash or sanitize their hands. ? Hair may be removed from the surgical area. ? Your scrotum will be washed with soap. ? You will be given one or more of the following: ? A medicine to help you relax (sedative). You may be instructed to take this a few hours before the procedure. ? A medicine to numb the area (local anesthetic). ? Your health care provider will feel (palpate) for your vas deferens. ? To reach the vas deferens, one of two methods may be used: ? A very small incision may be made in your scrotum. ? A punctured opening may be made in your scrotum, without an incision. ? Your vas deferens will be pulled out of your scrotum, and may be: ? Tied off. ? Cut and possibly burned (cauterized) at the ends to seal them off. ? The vas deferens will be put back into your scrotum. ? The incision or puncture opening will be closed with absorbable stitches (sutures). The sutures will eventually dissolve and will not need to be removed after the procedure. The procedure may vary among health care providers and hospitals. What happens after the procedure? ? You will be monitored to make sure that you do not experience problems. ? You will be asked not to ejaculate for at least 1 week after the procedure, or as long as directed. ? You will need to use a different form of contraception for 2?4 months after the procedure, until you have test results confirming that there are no sperm in your semen. ? You may be given scrotal support to wear, such as a jock strap or underwear with a supportive pouch. ? Do not drive for 24 hours if you were given a sedative to help you relax. Summary ? Vasectomy is considered a permanent and very effective form of control (contraception). The procedure prevents sperm from being released during ejaculation. ? Your scrotum will be numbed with medicine (local anesthetic) for the procedure. ? After the procedure, you will be asked not to ejaculate for at least 1 week, or for as long as directed. You will also need to use a different form of contraception until your health care provider examines you and finds that there are no sperm in your semen. This information is not intended to replace advice given to you by your health care provider. Make sure you discuss any questions you have with your health care provider. Document Released: 01/14/2004 Document Revised: 04/27/2019 Document Reviewed: 01/20/2018 [employer] Patient Education ? 2019 [employer]. [facility] Evaluation note Diagnosis Atrial fibrillation, unspecified type (HCC) [I48.91 (ICD-10-CM)]- Primary [facility] Diagnosis Atrial flutter with rapid ventricular response (HCC)- Primary Atrial flutter [facility] Diagnosis Paroxysmal atrial fibrillation (HCC)- Primary Atrial fibrillation Medication monitoring encounter Encounter for therapeutic drug monitoring Current use of rn long term care anticoagulation Long-term (current) use of anticoagulants documented in this encounter [facility] Summary Purpose Family History No Family History Records FoundNo Family History Records FoundNo Family History Records FoundNo Family History Records Found Advance Directives No Advanced Directives Records FoundNo Advanced Directives Records FoundNo Advanced Directives Records FoundNo Advanced Directives Records Found Additional Source Comments (unrecognized sect ion and content) No Status Records FoundNo Status Records FoundNo Status Records FoundNo Status Records Found INFORMATION SOURCE (unrecogn ized section and content) DATE CREATED AUTHOR 12/02/2018 [facility] DATE CREATED AUTHOR AUTHOR'S ORGANIZ ATION 04/18/2021 Chandler Verdin [facility] DATE CREATED AUTHOR AUTHOR'S ORGANIZ ATION 11/25/[address] [facility] DATE CREATED AUTHOR AUTHOR'S ORGANIZ ATION 11/18/2024 [facility] nter Source Comments (unrecognize d section and content) In the event this informatio n is protected by the Federal Confidentiality of Alcohol and Drug Abuse Patient Records regulations: The Federal rules restrict any use of the information to criminally investigate or prosecute any alcohol or drug abuse patient.[facility] the event this information is protected by the Federal Confidentiality of Alcohol and Drug Abuse Patient Records regulations: The Federal rules restrict any use of the information to criminally investigate or prosecute any alcohol or drug abuse patient.[facility] Hospital[facility] the event this information is protected by the Federal Confidentiality of Alcohol and Drug Abuse Patient Records regulations: The Federal rules restrict any use of the information to criminally investigate or prosecute any alcohol or drug abuse patient.[facility] Hospital[facility] the event this information is protected by the Federal Confidentiality of Alcohol and Drug Abuse Patient Records regulations: The Federal rules restrict any use of the information to criminally investigate or prosecute any alcohol or drug abuse patient.[facility] HospitalIn the event this information is protected by the Federal Confidentiality of Alcohol and Drug Abuse Patient Records regulations: The Federal rules restrict any use of the information to criminally investigate or prosecute any alcohol or drug abuse patient.[facility] HospitalIn the event this information is protected by the Federal Confidentiality of Alcohol and Drug Abuse Patient Records regulations: The Federal rules restrict any use of the information to criminally investigate or prosecute any alcohol or drug abuse patient.[facility] HospitalIn the event this information is protected by the Federal Confidentiality of Alcohol and Drug Abuse Patient Records regulations: The Federal rules restrict any use of the information to criminally investigate or prosecute any alcohol or drug abuse patient.[facility] HospitalIn the event this information is protected by the Federal Confidentiality of Alcohol and Drug Abuse Patient Records regulations: The Federal rules restrict any use of the information to criminally investigate or prosecute any alcohol or drug abuse patient.[facility] HospitalIn the event this information is protected by the Federal Confidentiality of Alcohol and Drug Abuse Patient Records regulations: The Federal rules restrict any use of the information to criminally investigate or prosecute any alcohol or drug abuse patient.[facility] HospitalIn the event this information is protected by the Federal Confidentiality of Alcohol and Drug Abuse Patient Records regulations: The Federal rules restrict any use of the information to criminally investigate or prosecute any alcohol or drug abuse patient.[facility] Reason for Visit (unrecogniz ed section and content) Reason Comments Opened In Error Reason Comments Follow Up Afib Specialty Diagnoses / Procedures Referred By Contac t Referred To Contact Cardiology / CARDIOLOGY Diagnoses Atrial fibrillation, unspecified type (HCC) Pt has asked to cancel his 02/24/22 appointment and move it out a year. Procedures OFFICE/OUTPATIENT ESTABLISHED MOD MDM 30-39 MIN EST PATIENT Self Mela Nails MD [address] [facility] [address] [place] [address] Referral ID Status Reason Start Date Expiration Date Visits Re quested Visits Authorized [id number] Denied 02/21/2023 11/06/2023 1 0 Reason Comments Request Outside Medical Records Reason Comments Patient Question Reason Comments Appointment Release Of Medical Records Reason Comments Appointment Reason Onset Date Comments Refill Request 07/16/2024 Reason Comments Follow Up Atrial flutter w/RVR s/p DCCV x3 on Eliquis Specialty Diagnoses / Procedures Referred By Contac t Referred To Contact Cardiology / CARDIOLOGY Diagnoses Follow-up examination 1 year rov with EKG. amf Procedures OFFICE/OUTPATIENT ESTABLISHED MOD MDM 30 MIN EST PATIENT Self Mela Nails MD [address] [facility] [address] [place] [address] Referral ID Status Reason Start Date Expiration Date Visits Re quested Visits Authorized [id number] Closed 02/27/2024 11/06/2024 1 1 Reason Comments Refill Request FOR RECORDS PERTAINING TO PATIENTS WHO ARE OR HAVE BEEN ENROLLED IN A CHEMICAL DEPENDENCY/SUBSTANCEABUSE PROGRAM, SOME INFORMATION MAY BE OMITTED. This clinical summary was aggregated from multiple sources. Caution should be exercised in using it in the provision of clinical care. This summary normalizes information from multiple sources, and as a consequence, information in this document may materially change the coding, format and clinical context of patient data. In addition, data may be omitted in some cases. CLINICAL DECISIONS SHOULD BE BASED ON THE PRIMARY CLINICAL RECORDS. [facility]. provides no warranty or guarantee of the accuracy or completeness of information in this document.
[2025-04-25 08:10] LABS: Basophils Percent Auto 0.3 % (0.2-2.0); Eosinophils Absolute Auto 0.2 10^3/uL (0.0-0.7); Eosinophils Percent Auto 1.8 % (0.9-7.0); Hematocrit 43.2 % (42.0-54.0); Hemoglobin 14.8 g/dL (14.0-18.0); Immature Granulocytes Abs Auto 0.06 10^3/uL (0.00-0.03); Immature Granulocytes Pct Auto 0.5 % (0.0-0.5); Lymphocytes Absolute Auto 3.3 10^3/uL (1.2-3.8); Lymphocytes Percent Auto 27.6 % (20.5-60.0); Mean Corpuscular HGB Conc 34.3 g/dL (29.9-35.2); Mean Corpuscular Hemoglobin 31.6 pg (25.9-34.0); Mean Corpuscular Volume 92.3 fL (80.0-94.0); Mean Platelet Volume 9.8 fL (9.5-13.5); Monocytes Absolute Auto 0.7 10^3/uL (0.3-0.8); Monocytes Percent Auto 5.7 % (1.7-12.0); Neutrophils Absolute Auto 7.8 10^3/uL (1.4-6.5); Neutrophils Percent Auto 64.1 % (43.0-75.0); Platelet Count 274 10^3/uL (150-450); Red Blood Count 4.68 10^6/uL (4.70-6.10); Red Cell Distribution Width 13.3 % (11.0-15.0); White Blood Count 12.1 10^3/uL (4.0-11.0)
[2025-04-25 08:57] LABS: Alanine Aminotransferase 44 U/L (16-63); Albumin Globulin Ratio 0.9; Albumin Level 3.6 g/dL (3.4-5.0); Alkaline Phosphatase 106 U/L (46-116); Anion Gap 13.5; Aspartate Amino Transferase 18 U/L (15-37); BUN Creatinine Ratio 18.7; Bilirubin Total 0.3 mg/dL (0.2-1.0); Carbon Dioxide 28.3 mmol/L (21.0-32.0); Chloride 100 mmol/L (98-107); Estimated GFR (African America >60 (>=60 mL/min/1.73m^2); Estimated GFR (Non-African Ame >60 (>=60 mL/min/1.73m^2); Glucose 161 mg/dL (74-106); Potassium 3.8 mmol/L (3.5-5.1); Sodium 138 mmol/L (136-145); Total Protein 7.6 g/dL (6.4-8.2)
== END 2025-04-25 07:43 | disposition home or self-care (01) ==
LOC: LAB 07:43
DX: I48.0 Paroxysmal atrial fibrillation (principal); Z51.81 Encounter for therapeutic drug level monitoring; Z79.01 Long term (current) use of anticoagulants
CPT/HCPCS: 36415; 80053; 85025

== ENCOUNTER 2025-10-19 10:38 | Emergency (ER) | payer OTHER, SELFPAY ==
--- OUTSIDE RECORDS SUMMARY | 2025-09-05 06:10 | XMS_ITS | Continuity of Care Document ---
Author Organization [facility] Address [address] [place] [phone] Phone Care Team Providers Care Rf Technician Name Role Phone Billytrina Kenisha COTTO Unavailable Unavaila ble Allergies, Adverse Reactions, Alerts Substance Reaction Status Criticality No Known Allergies Active No Inform ation Medications Medication Instructions Dosage Effective Dates (start - stop) Status Comments tioconazole 6.5 % vaginal ointment insert 1 applicatorful by vaginal route every day just prior to bedtime 4.6 G - No Longer Active Procedures Procedure Date ROUTINE VENIPUNCTURE OFFICE/OUTPATIENT VISIT, EST PREV VISIT, EST, AGE 18-39 OFFICE/OUTPATIENT VISIT, [...] URINE TEST OFFICE/OUTPATIENT VISIT, EST URINE TEST [facility]DH SPECIMEN HANDLING (GC/CHLAMYDIA) Jul URINE TEST NEW FP MEDICAID Intraoral-periapical 1st Film 3 Tzzzisdqs-aihxpusprg-imne Additional Jul Limited Oral Eval Bitewig-single Film Advance Directives Directive Yes / No Effective Date File Name No Information Encounters Encounter Description Practice Location Reason(s) For Visit Diagnoses Date Provider Providers Copied on Encounter [facility], [address] [place] [address], [id number] , [place] tel:[phone] [facility] Candidiasis of vulva and vagina 0-202 5 Tawana De. [address] [place] [address] [place], [address], [place]. 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 [address] [place], [address], [place]. tel: [phone] PREV VISIT, [facility], AGE 18-39 [facility], [address] [place] [address], [id number] , [place] tel: [phone] [facility] annual exam (chief complaint) Irregular periods- well woman with abnormal findingOther fatigueMenorrhagi aBody mass index [BMI] 45.0-49.9, adult 3 [facility] [place]. [address] [place] [address], [id number] , [place]. tel: [phone] OFFICE/OUTPA TIENT VISIT, [facility], [address] [place] [address], [id number] , [place] tel: [phone] [facility] Office Visit (chief complaint) Body mass index (BMI) 45.0-49.9, adultCyst of Bartholin's gland 0 Visci DO Anthony. [address] [place] [address], [id number] , [place]. tel: [phone] [facility], [address] [place] [address], [id number] , [place] tel: [phone] [facility] Bartholin cyst (chief complaint) Body mass index (BMI) 45.0-49.9, adultCyst of Bartholin's gland 0 Visci DO Anthony. [address] [place] [address], [id number] , [place]. tel: [phone] OFFICE/OUTPA TIENT VISIT, EST [facility], [address], [place], [id number] , [place] tel: [phone] [facility] pelvic pain (chief complaint) Body mass index (BMI) 45.0-49.9, adultBartholin cyst - 0 [facility] [place]. [address], [place], [id number] , [place]. tel: [phone] PREV VISIT, EST, AGE 18-39 [facility], [address], [place], [id number] , [place] tel: [phone] [facility] annual exam (chief complaint) Encntr for weaver dobby loom exam (general) (routine) w/o abn findingsBody mass index (BMI) 45.0-49.9, adultNegative testScreen for STD (sexually transmitted disease)Other problems related to lifestyleOCP follow up Rx 9 [facility] [place]. [address], [place], [id number] , [place]. tel: [phone] OFFICE/OUTPA TIENT VISIT, EST [facility], [address], [place], [id number] , [place] tel: [phone] [facility] Bartholin Cyst Follow up (chief complaint) Body mass index (BMI) 45.0-49.9, adultBartholin cyst 9 [facility] [place]. [address], [place], [id number] , [place]. tel: [phone] PREV VISIT, EST, AGE 18-39 [facility], [address] [place] [address], [id number] , [place] tel: [phone] [facility] annual exam (chief complaint) Encntr for weaver dobby loom exam (general) (routine) w/o abn findingsBody mass index (BMI) 40.0-44.9, adultEncounter for test, result negativeEncounter for STD screening- STD liefsle codeOCP follow up Rx- HIV 8 [facility] [place]. [address], [place], [id number] , [place]. tel: [phone] OFFICE/OUTPA TIENT VISIT, [facility], [address], [place], [id number] , [place] tel: [phone] [facility] test (chief complaint) Encounter for test, result negativeIrregular periods 6 [facility] [place]. [address], [place], [id number] , [place]. tel: [phone] OFFICE/OUTPA TIENT VISIT, [facility], [address], [place], [id number] , [place] tel: [phone] [facility] abnormal pap smear (chief complaint) ASCUS on pap smear of cervix 6 [facility] [place]. [address], [place], [id number] , [place]. tel: [phone] PREV VISIT, EST, AGE 18-39 [facility], [address] [place] [address], [id number] , [place] tel: [phone] [facility] annual exam (chief complaint)cont raception (chief complaint) Encounter for surveillance of injectable contraceptiveEnco unter for general weaver dobby loom exam without abnormal findingEncounter for STD screening 5 [facility] [place]. [address], [place], [id number] , [place]. tel: [phone] OFFICE/OUTPA TIENT VISIT, [facility], [address], [place], [id number] , [place] tel:+ [phone] [facility] contraception (chief complaint) Other specified contraceptive management 5 [facility] [place]. [address], [place], [id number] , [place]. tel: [phone] OFFICE/OUTPA TIENT VISIT, [facility], [address], [place], [id number] , [place] tel: [phone] [facility] contraception (chief complaint) Other specified contraceptive management Negrito-0 8-201 5 [facility] [place]. [address], [place], [id number] , [place]. tel: [phone] OFFICE/OUTPA TIENT VISIT, [facility], [address], [place], [id number] , [place] tel: [phone] [facility] Depo Supply (chief complaint) Other specified contraceptive management Jan-2 4-201 5 [facility] [place]. [address], [place], [id number] , [place]. tel: [phone] OFFICE/OUTPA TIENT VISIT, [facility], [address], [place], [id number] , [place] tel: [phone] [facility] Depo (chief complaint) Other specified contraceptive management Dec-3 0-201 4 [facility] [place]. [address], [place], [id number] , [place]. tel: [phone] PREV VISIT, [facility], AGE 18-39 [facility], [address], [place], [id number] , [place] tel: [phone] [facility] annual visit (chief complaint) Gynecological ExaminationOther specified contraceptive management 0 7- 4 [facility] [place]. [address], [place], [id number] , [place]. tel: [phone] OFFICE/OUTPA TIENT VISIT, [facility], [address], [place], [id number] , [place] tel: [phone] [facility] supply visit / depo (chief complaint) Other specified contraceptive management 5-201 4 [facility] [place]. [address], [place], [id number] , [place]. tel: [phone] OFFICE/OUTPA TIENT VISIT, [facility], [address], [place], [id number] , [place] tel: [phone] [facility] control--Resta rt Depo (chief complaint) Other specified contraceptive management 4 [facility] Mnceil. [address], [place], [id number] , [place]. tel: [phone] OFFICE/OUTPA TIENT VISIT, [facility], [address], [place], [id number] , [place] tel: [phone] [facility] urinary urgency (chief complaint) Urinary Tract InfectionOther specified contraceptive management 4 Sangita Vargas. [address], [place], [id number] , [place]. tel: [phone] [facility], [address] [place] [address], [id number] , [place] tel: [phone] Dental Clinic Dental examination 3 Angus DMD February. [address], [place], [id number] , [place]. tel: [phone] OFFICE/OUTPA TIENT VISIT, [facility], [address] [place] [address], [id number] , [place] tel: [phone] [facility] control (chief complaint) Other specified contraceptive managementGeneral counseling on prescription of oral contraceptives 0 3 Dioni Calderón. [address] [place] [address], [address], [place]. tel: [phone] [facility], [address] [place] [address], [id number] , [place] tel: [phone] [facility] annual visit (chief complaint) Gynecological ExaminationPregna ncy examination or test, negative result 3 Dioni Calderón. [address] [place] [address], [address], [place]. tel: [phone] [facility], [address] [place] [address], [id number] , [place] tel: [phone] Dental Clinic Dental examination 3 Angus DMD February. [address], [place], [id number] , [place]. tel:+ [phone] Family History Family Member Type Diagnosis Age [...] Record Payers Payer name Insurance type Covered constitution party ID Authoriza tion(s) [employer] [id number] Medicaid Wrap - [facility] [id number] Self Pay Cap [id number] Social History Type Description Quantity Date Captured Comments Alcohol Use Details Unknown Caffeine Use Details Unknown Tobacco Use Status No Information Smoking Status No Information Sex Female Sexual Orientation Straight or heterosexual Gender Identity Female Chief Complaint And Reason For Visit No Information Reason For Referral Reason For Referral No Information Plan Of Treatment Date Type Action Status Goal PRAPARE ASSESSMENT. Due on O due Goal Depression scree alirio. Due on due Goal RLP. Due on due Goal Influenza vaccine. Due on Oc due Goal Tdap Vaccine. Due on 2024 due Goal Tdap. Due on due Goal Hepatitis C scre ening. Due on due Goal Unhealthy drug u se screening. Due on due Goal HPV. Due on due Goal Influenza vaccine. Due on Oc due Goal Tdap Vaccine. Due on 2024 due Goal Hepatitis C scre ening. Due on due Goal Hep A. Due on du e Goal HPV. Due on due Goal Unhealthy drug u se screening. Due on due Goal PRAPARE ASSESSMENT. Due on O due Goal RLP. Due on due Goal Depression scree alirio. Due on due Goal Tdap. Due on due Goal Lifestyle education regardin g diet completed Goal RLP. Due on due Goal PRAPARE [...] Goal Influenza vaccine. Due on due Goal RLP. Due on [...] Goal Td vaccine. Due on due Goal Tdap. Due on due Goal Td vaccine. Due on due Goal Depression scree alirio. Due on due Goal Depression scree alirio. Due on due Goal Tdap. Due on due Goal Td vaccine. Due on 14 due Goal Tobacco cessation counseling completed Future Order: Lab Order CBC With Differential/Platelet ([id number]), Collected on: Ordered Future Order: Lab Order TSH+Free T4 ([id number]), Collected on: Ordered History Of Present Illness Encounter Date Complaint History Of Prese nt Illness STI check Patient here for STI check. Denies any symptoms or known exposure. Denies any other concerns for today. Would like labs drawn today too for STI check. 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 Denies any tobacco, drug or alcohol use.Urine Hcg: Negative.//YAKELIN Guerrero I have reviewed all above information and agree. 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 2x2 and bandage applied. Patient tolerated well.//YAKELIN Guerrero annual exam Currently pregna nt: no. : [...] been unable to have one. Denies other [employer] problems at this time. 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 States she [...] time. Desires HIV and RPR. 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 test Patient here for test. (-) result obtained. She is not desiring a . She has not had a period since 07/19/16. At home tests also showed negative. Patient states she is typically regular. ALESSIO Lopez test (comments) Cyndie harrison states she had menses every month until Sep. Now has not had a menses for 3 months. Home tests have all been normal. States she is not on BC because she is not very sexually active. States she is okay if a occurs. Desirs medication to regulate menses abnormal pap smear (comments) [facility] she has had a history of abn paps in the pas, but it has been several years. abnormal [...] enough calcium in her diet, she will pickle processor a supplement. Denies any problems/concerns at this [...] No Information Instructions Date Instruction Additional Infor mation Giving encouragement to exercise Related to Body mass index [BMI] 50.0-59.9, adult Lifestyle education regarding di et Related to Body mass index [BMI] 50.0-59.9, adult Discussed heavy mens es and fatigue. recommend [...] patient desires Sprintec. Related to Encntr for weaver dobby loom exam (general) (routine) w/o abn findings Cervical [...] adult HIV and RPR sent to lab. Patietn to call in 1 week for result [...] if desires results. Related to Encntr for weaver dobby loom exam (general) (routine) w/o abn findings Giving [...] to Irregular periods Pap sent to lab. Pat ient to call in 2 weeks for results. [...] desires results. Related to Encounter for general weaver dobby loom exam without abnormal finding May continue Depo [...] safer sexual practices Assessments Type Assessment Date assessment Candidiasis of vulva and vagina Patient Care Teams Name Effective Dates (start - stop) Status Members No Information
--- OUTSIDE RECORDS SUMMARY | 2025-10-08 19:34 | XMS_ITS | Continuity of Care Document ---
Author Organization [facility] Address [address] [place] [address] Phone Care Team Providers Care Instructor Warper Name Role Phone Magno Whitley DO Primary Care Provider Magno Whitley DO Attending Provider Care Teams Patient Care Team Team Status: Active Member Role/Relationship Status Dates Magno Whitley DO Primary Care Provider Active Visit Care Team Team Status: Inactive Member Role/Relationship Status Dates Magno Whitley DO Primary Care Provider Active St art: October 08, 2025 End: October 08, 2025Magno Whitley DOAttending ProviderActiveStart: October 08, 2025 End: October 08, 2025 Patient Care Team Team Status: Inactive Member Role/Relationship Status Dates Magno Whitley DO Primary Care Provider Active St art: October 08, 2025 End: October 08, 2025Magno Whitley DOAttending ProviderActiveStart: October 08, 2025 End: October 08, 2025 Chief Complaint and Reason for Visit Chief Complaint Admit Date yearly October 08, 2025 1 0:47am I10,Z79.899,R63.5,Z13.1 October 08 12:40pm Reason for Visit Admit Date Acute asthma exacerbation October 08, 2025 10:47am Asthma October 08, 2025 1 0:47am BMI 50.0-59.9, adult October 08, 2025 10:47am Family history of diabetes mellitus Dece mber 2024 10:47am Family history of hypertension October 08, 2025 10:47am Intramural uterine fibroid October 08, 2025 10:47am Iron deficiency anemia October 08 10:47am Migraine with aura and witho ut status migrainosus, not intractable October 08, 2025 10:47am Acute bronchitis October 08, 2025 1 0:47am Allergies, Adverse Reactions, Alerts Allergen Type Severity Reaction Last Updated Verified Status No Known Allergies Allergy Unknown October 08, 2025 11:01amYesActive Social History Smoking Status Status Start Date End Date Date of Observa tion Never smoked tobacco (finding) September 29, 2021 11:57am Observation Status Observation Response Date of Response Legal Sex Female (finding) [facility] 1984Pregnancy StatusNDeceer 2024 Family History Relationship Condition Age at Onset Recorded Date/T cam brother Family history of mental disorder Unknown fatherHypertensionUnknownDiabetes mellitusUnknownmotherMultiple sclerosisUnknown Problems Active Problems Problem Diagnosis/Recorded Date Onset Date Stat us COVID-19 October 12, 2020 12:40am Unknown A ctive Migraine with aura and witho ut status migrainosus, not intractable October 08, 2025 12:38pm Unknown Acti ve Intramural uterine fibroid October 08, 2025 12:36pm Unknown Active Family history of diabetes mellitus October 08, 2025 12:36pm Unknown Active Dyspnea October 17, 2020 1:37pm Unknown A ctive Acute asthma exacerbation October 17, 2020 3:48pm U nknown Active Family history of hypertension October 08, 2025 12:3 6pm Unknown Active Iron deficiency anemia October 08, 2025 12:36pm Unkn own Active BMI 50.0-59.9, adult October 08, 2025 12:38pm Unknow n Active Asthma October 17, 2020 1:37pm Unknown A ctive Right ankle sprain September 29, 2021 12:57pm Unknown Active Hypokalemia October 12, 2020 12:40am Unknown A ctive Medications Medication Status Dose Units Route Directions Qty Days Refills S tart Date Stop Date End Date Reason(s) Instructions Adherence Meclizine 25 mg Tablet Discontinued 25 MG PO Three times daily as needed for Vertigo 20 0October 2017 11:00pmDecember 2024 11:08amAmitriptyline 150 mg tablet Ceeohdbszkok028IILHIy Directed as needed for HeadacheJanuary 2018 12:00am October 08, 2025 11:05amtakes if migraine get really bad Sumatriptan Succinate 50 mg aloppqGwmlppozjoru97ZNDPCl Directed as needed for Migraine HeadacheJanuary 2018 12:00amDeceer 2024 11:08amMetronidazole (Flagyl) 500 mg qnyjkfRofzuokwxcey180TVSMWokwd cvzcx8810Ylrnola 2018 12:00amJanuary 2018 12:00amJanuary 2018 12:02amCephalexin (Keflex) 500 mg ncmihpwPsxrfolwkglt2682DDVRHldoe nhtmm29759Ekkarum 2018 12:00am November 22, 2018 12:00amJanuary 2018 12:01amLoperamide (Imodium A-D) 2 mg jyryfnbBxgzvznkdpqz0FVINO4Z917Sugt 2017 11:00pmOctober 2017 11:41amwhile awake; repeat until response; do not exceed 16 mg per 24 hrs Ondansetron (Zofran Odt) 4 mg tablet,lbhyauxtzsmewvErphujhldjez8MKDRP3K162Pxnl 2017 11:00pmJuly 2017 11:00pmJuly 2017 11:01pmDexamethasone (Decadron) 6 mg mhwrmhTdcktjbaenkk2XOVHSovqu863Qjwhafmc 2019 12:00am October 08, 2025 11:08amL Norgest/E.Estradiol-E.Estrad (Jaimiess) 0.15 mg-30 mcg (84)/10 mcg (7) tablets,dose pack,3 monthActiveTABPODece2024 12:00amUnknownAlbuterol Sulfate 90 mcg/actuation HFA aerosol idophjrRupkoc2KAPI INHALATIONEvery 4 hours as needed for shortness of breath or wheezing6.73 October 08, 2025 12:00amUnknownAzithromycin (Zithromax Tri-Gutierrez) 500 mg tablet Rxofcj2UIpxuue16Wltfmhvb 2nd, 2025 12:00amFor 500 mg dose pack: take 500 mg once daily for 3 days orally daily;Unknown Immunizations Immunization Event Date Not Given Reason Dose Number 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 Lot Number Reason(s) Given Vaccine Information Statement (VIS) Detail Administration Location diphtheria, TT and pertussis vaccine November diphtheria, TT and pertussis vaccineMarch 1986diphtheria, TT and pertussis vaccineAugust 1986diphtheria, TT and pertussis vaccineSept1987 diphtheria, TT and pertussis vaccineMarch 1991Hepatitis B Vaccine, adol/ped dosageFebruary [id number] B Vaccine, adol/ped dosageMarch [id number], Mumps, and Rubella Virus VaccineMarch 1987Measles, Mumps, and Rubella Virus VaccineFebruary [id number] poliovirus vaccine, live, oralJanuary 1986trivalent poliovirus vaccine, live, oral January 21, 1987trivalent poliovirus vaccine, live, oralSeptember 1987 trivalent poliovirus vaccine, live, oralMarch 1991Td(adult) unspecified formulationFebruary [id number] Influenza VaccineAugust 2015 Relevant Diagnostic Tests and/or Laboratory Data Laboratory Results Test Collection Date/Time Result Date/Time Result Interpretation Reference Range Result Comment Performing Site Corrected White Blood Count October 08, 2025 12:47pm October 08, 2025 7:38pm 6.1 10*3/uL 3.8-11.6[facility] [id number] [address] [place] [address] 17765Smxoldspeyp WBC CountDe2024 12:47pmDece2024 7:38pm6.1 10*3/uL3.8-11.6FC[facility] [id number] [address] [facility] [address]Vvn Blood CountDe2024 12:47pmDecemb2024 7:38pm4.68 10*6/uL3.60-5.00[facility] [id number] [address] [facility] 19552ZglbwmohkuTzemzqwl 2nd, 2025 12:47pmDecember 2024 7:38pm 14.2 g/dL11.8-15.4FOhio[facility] [id number] [address] [facility] 07141EnxzshdmzfEsovyclm 2024 12:47pmDecember 2024 7:38pm 42.0 %34.0-46.4FOhio[facility] [id number] [address] [facility] 97406Vywn Corpuscular VolumeDecemb2024 12:47pmDecember 2024 7:38pm89.9 fD10-146QxssboewxMount [facility] [id number] [address] [facility] 00767Ockt Corpuscular HemoglobinDecember 2024 12:47pmDecember 2024 7:38pm30.5 pg24.7-34.3FOhioHealth [facility] [id number] [address] [facility] 060[address]Ccln Corpuscular Hemoglobin Concentce2024 12:47pm October 08, 2025 7:38pm33.9 g/dL32.0-35.0[facility] [id number] [address] [facility] 25577Pdd Cell Distribution WidthOctober 08, 2025 12:47pmDecemb2024 7:38pm14.1 %11.9-15.3FOhio[facility] [id number] [address] [facility] 05038Kpifcluc CountDece2024 12:47pmDecemb2024 7:50rn603 10*3/jB860-675LebwkghnwMount St. [facility] [id number] [address] [place] [address] 07558Lyxw Platelet VolumeDece2024 12:47pmDecemb2024 7:38pm8.2 fL6.3-10.7FOhio[facility] [id number] [address] [facility] 169[address]Tgnczbcvfnb (%) (Auto)October 08, 2025 12:47pmDece2024 7:38pm61.[address] [id number] [address] [facility] 15633Qvgpkgyaxzf (%) (Auto)October 08, 2025 12:47pmDecember 2024 7:38pm32.[address] [id number] [address] [facility] 19418Nilkwzzmd (%) (Auto)October 08, 2025 12:47pmDecember 2024 7:38pm5.[address] [id number] [address] [facility] 41021Vvillocjpip (%) (Auto)October 08, 2025 12:47pmDecember 2024 7:38pm0.[address] [id number] [address] [facility] 36854Kcwxndquq (%) (Auto)October 08, 2025 12:47pmDecember 2024 7:38pm0.[address] [id number] [address] [facility] 82121Gjozmsccj RBC Relative Count (auto)October 08, 2025 12:47pm October 08, 2025 7:38pm0.2 /100{WBC}0-0.5FOhio[facility] [id number] [address] [facility] 464[address]Dlijfvacjcy # (Auto)October 08, 2025 12:47pmDecember 2024 7:38pm3.7 10*3/uL1.8-7.7FOhioHealth [facility] [id number] [address] [facility] 20198Djkealdfsuy # (Auto)October 08, 2025 12:47pmDecember 2024 7:38pm2.0 10*3/uL1.00-4.8[facility] [id number] [address] [facility] 34494Dqtphqksm # (Auto)October 08, 2025 12:47pmDecember 2024 7:38pm0.3 10*3/uL0.0-0.8[facility] [id number] [address] [facility] 25506Hgwwbuqnabs # (Auto)October 08, 2025 12:47pmDecember 2024 7:38pm0.0 10*3/uL0.0-0.45[facility] [id number] [address] [place] [id number] # (Auto)October 08, 2025 12:47pmDecember 2024 7:38pm0.0 10*3/uL0.0-0.2FOhioHealth [facility] [id number] [address] [facility] 68633Nxmdgcl LevelDecember 2024 12:47pmDecember 2024 6:34pm82 mg/iO04-187LLV recommended reference rangeRandom Glucose Reference Range is dependent on time and content of last meal. Glucose of more than 200 mg/dL in a nonstressed, ambulatory subject supports the diagnosisof Diabetes Mellitus.[facility] [id number] [address] [place] [id number] Urea NitrogenDece2024 12:47pmDecember 2024 6:34pm8 mg/dL7-25[facility] [id number] [address] [facility] 69498BenqrlylqyKcwohsob 2nd, 2025 12:47pmDecember 2024 6:34pm 0.70 mg/dL0.60-1.20[facility] [id number] [address] [facility] 58156Jpetcucap GFR (CKD-EPI)October 08, 2025 12:47pmDecember 2024 6:34pm> 60.0 mL/MinMount St. Mary [facility] [id number] [address] [facility] 27294Mupelu LevelDecember 2024 12:47pmDecember 2024 6:34pm 139 mmol/A570-301YvqiydomtMount St. [facility] [id number] [address] [place] 0434770Potassium LevelDecember 2024 12:47pmDecember 2024 6:34pm4.3 mmol/L3.5-5.1FOhioHealth [facility] [id number] [address] [facility] 96887Ncgapoyw LevelDecember 2024 12:47pmDecember 2024 6:55ld777 mmol/T95-781CkxtnbwrtMount St. [facility] [id number] [address] [facility] 99396Ywimzr Dioxide LevelDecember 2024 12:47pmDecember 2024 6:34pm25.0 mmol/L21.0-31.0[facility] [id number] [address] [facility] 04186Kzdmr GapDecember 2024 12:47pmDecember 2024 6:34pm 12.3 mEq/L6.0-15.0[facility] [id number] [address] [facility] 28249Idybkxu LevelDecember 2024 12:47pmDecember 2024 6:34pm8.9 mg/dL8.6-10.3FOhioHealth [facility] [id number] [address] [facility] 90546Teyry ProteinDecember 2024 12:47pmDecember 2024 6:34pm6.7 g/dL6.4-8.9[facility] [id number] [address] [facility] 79609BxfanwyKuhxtzjf 2024 12:47pmDecember 2024 6:34pm3.7 g/dL3.5-5.7FOhioHealth [facility] [id number] [address] [facility] 97033AmkispeoNawgladd 2024 12:47pmDecember 2024 6:34pm3.0 g/dLMount St. Mary [facility] [id number] [address] [facility] 35482Bufiine/Globulin RatioDecember 2024 12:47pmDecember 2024 6:34pm1.2FOhioHealth [facility] [id number] [address] [facility] 93827Kxgpu BilirubinDecember 2024 12:47pmDecember 2024 6:34pm0.4 mg/dL0.3-1.0[facility] [id number] [address] [facility] 60130Auobxa BilirubinDecemb2024 12:47pmDecemb2024 6:34pm0.10 mg/dL0.03-0.18FOhio[facility] [id number] [address] [facility] 13105Hopchydv BilirubinDecemb2024 12:47pmDecember 2024 6:34pm0.3 mg/dLMount St. [facility] [id number] [address] [facility] 36136Sgixmecrw Amino Transf (AST/SGOT)October 08, 2025 12:47pm October 08, 2025 6:34pm17 U/Y91-09KuemkbcinMount St. [facility] [id number] [address] [facility] 86787Gndixzp Aminotransferase (ALT/SGPT)October 08, 2025 12:47pm October 08, 2025 6:34pm20 U/L7-52[facility] [id number] [address] [facility] 23111Zyopjlzs PhosphataseDece2024 12:47pmDecemb2024 6:34pm62 U/Z24-491UbahiwdzoMount St. [facility] [id number] [address] [facility] 86464Vxmh LevelDecemb2024 12:47pmDece2024 6:34pm 129 ug/oE52-876GzocvgdapMount St. [facility] [id number] [address] [facility] 36854EjovwbxsJirvjztx 2nd, 2025 12:47pmDecember 2024 6:38pm21.6 ng/mL11.0-306.8[facility] [id number] [address] [facility] 58620Skjnucbsatq LevelDece2024 12:47pmDecember 2024 6:46sa450 mg/qU768-725Lhxv less than 200 mg/dl low riskChol 201-239 mg/dl borderline riskChol 240 mg/dl and greater high riskMount St. [facility] [id number] [address] [facility] 96312QXR CholesterolDeceer 2024 12:47pmDecember 2024 6:34pm40 mg/uE77-41YEE CHOL ATP-III CLASSIFICATION Cardiovascular RiskHDL > or equal to 60 mg/dL LOWHDL < 40 mg/dL [address]IGHMount [address] Mary Hospital [facility]tr [id number] [address] [facility] 77693Vpwichkzclscr Levelce2024 12:47pmDecember 2024 6:07yo029 mg/dL0-149TRIG ATP III CLASSIFICATIONTRIG less than 150 mg/dL NormalTRIG 150-199 mg/dL Borderline highTRIG 200-500 mg/dL High TRIG greater than 500 mg/dL Very highStandard traceable to the Center for Disease Conrtrol and Prevention (CDC) test method.[facility] [id number] [address] [facility] 90115BCG Cholesterol, CalculatedOctober 08, 2025 12:47pmDecemb2024 6:00wv270 mg/dLAbove high normal0-100LDL ATP III CLASSIFICATIONLDL less than 100 mg/dL OptimalLDL 100-129 mg/dL Near or above rwkybuaWVD502-425 mg/dL Borderline highLDL 160-189 mg/dL HighLDL greater than 189 mg/dL Very high [facility] [id number] [address] [facility] 91284PHMD CholesterolOctober 08, 2025 12:47pmDece2024 6:34pm23 mg/dLMount St. [facility] [id number] [address] [facility] 37678Xniywzauahr/HDL RatioDece2024 12:47pmDece2024 6:34pm4.2<5.0[facility] [id number] [address] [facility] 44260Emtqc ThyroxineDe2024 12:47pmDecemb2024 4:22pm12.70 ug/dLAbove high normal5.39-11.82[facility] [id number] [address] [facility] 03998Bgptoqx Stimulating Hormone 3rd GenOctober 08, 2025 12:47pm October 08, 2025 4:25pm0.73 u[iU]/mL0.45-5.33[facility] [id number] [address] [facility] 89515Lnerfrih Creatinine Clearance (ChemOctober 08, 2025 12:47pm October 08, 2025 6:34pmN/[facility] [id number] [address] [facility] [address] Vital Signs Vital Reading Result Reference Range Collection Date/Time Height 67 [in_i] October 08, 2025 11:64rsYihfxx323.29 kgOctober 08, 2025 11:14amBody Pwheockcljn91.9 [degF]97.6-99.0October 08, 2025 11:14amHeart Rate97 /syq59-825 October 08, 2025 11:14amRespiratory rate16 /bsl99-88Aahwxodh 2nd, 2025 11:14am Oxygen saturation by Pulse pvyyfknl83 %95-100October 08, 2025 11:14amBP Zoszujes662 mm[Hg]100-140October 08, 2025 11:14amBP Fbrsgazpr88 mm[Hg]60-100 October 08, 2025 11:14amBMI (Body Mass Index)50.1 kg/c0Dpicbtpy2024 11:14am Advance Directives Advance Directive Response Recorded Date/ Time Advance Directives No July 9:02am Insurance Providers Guarantor Edu Luque Damon Address [address] [place] [id number] Info.Home Phone: Coverage Status Update:2025 Payer Group Member ID Coverage Type Subscriber Relationship to Subscriber Effective Date Expiration Date MMO Id: [id number] Aimee Matthews Id: [id number] [address] [facility] [facility] [address] Home Phone: Email: Jody HOLDER/STEVE [facility] [employer] Id: [id number] Aimee Matthews Id: [id number] [address] [facility] [facility] [address] Home Phone: Email: ELAINESan [facility] Centerbelaway[facility] CHIQUITAHELEN M. SIMPSON REHABILITATION [id number] Aimee Matthews Id: [id number] [address] [facility] [address] Home Phone: Email: E[facility]INECl[facility] Medicaid [id number] Damon Id: [id number] [address] [facility] [facility] [address] Home Phone: Email: ELAINESelfAnthem [place] Medicaid [place] Id: [id number] Aimee Matthews Id: [id number] [address] [place] [address] Home Phone: Email: ELAINEBarnes-Kasson [facility] HospitalbinHoly[facility]10026200701nullEdu Damon Id: [id number] [address] [place] [phone] Home Phone: Email: NONESel Encounters Encounter Location(s) Arrival/Admit Date Discharge/Departure Date Discharge/Departure Disposition Provider(s) Departed Physician/ Provider Office Visit -[facility] October 08, 2025 10:47am October 08, 2025 11:50am Discharged to home care or self care (routine discharge) Magno Whitley DO Departed Clinical -Lab [facility] October 08, 2025 12:40pm October 08, 2025 12:41pm Discharged to home care or self care (routine discharge) Magno Whitley DO Recent Diagnosis Onset Date Admit Date Acute asthma exacerbation Unknown [facility] 2024 10:47am Asthma Unknown October 08 10:47am BMI 50.0-59.9, adult Unknown October 10:47am Family history of diabetes mellitus Unknown October 08, 2025 10:47am Family history of hypertension Unknown 2024 10:47am Intramural uterine fibroid Unknown Decem lavell 2024 10:47am Iron deficiency anemia Unknown October 08, 2025 10:47am Migraine with aura and witho ut status migrainosus, not intractable Unknown October 08, 2025 10:47a m Acute bronchitis Unknown October 08 10:47am Assessments Diagnosis Onset Date Resolution Status Admit Date Acute asthma exacerbation acuteDeer 2024 10:47amAsthmaacuteDecember 2024 10:47amBMI 50.0- 59.9, adultacuteDecember 2024 10:47amFamily history of diabetes mellitus acuteDeer 2024 10:47amFamily history of hypertensionacuteceer 2024 10:47amIntramural uterine fibroidacuteDecember 2024 10:47amIron deficiency anemiaacute2024 10:47amMigraine with aura and without status migrainosus, not intractableacuteceer 2024 10:47amAcute bronchitisnoneactiveDeceer 2024 10:47am Plan of Treatment Author [facility]ley [facility] 20[facility] 12:49pmSee dictation below. I do not think at this point that she needs steroids. See dictation above She will continue with [facility] s gynecology for heavy menses control on current contraceptives. See dictation below Her iron deficiency anemia has been felt to be heavy menses related. I will recheck CBC, iron, ferritin. Discussed she will need screening yearly for diabetes with hemoglobin A1c. We are going to order some screening labs as below. She is doing very well with Tylenol or Motrin rescue treatment with occasional amitriptyline backup. Weight loss labs done today. Because it has been 2 weeks without improvement, I do think she warrants an antibiotic. Zithromax Tri-Gutierrez as indicated. She is also having bronchitis related asthma flare. We will refill her albuterol HFA for as needed use. That has worked very well for her during occasional respiratory infection with rescue approach and in between she has not had asthma symptoms at all. We discussed if she would have worsened control we would also consider asthma maintenance medication. She is going to get fasting CBC, BMP, hepatic panel, lipid profile, hemoglobin A1c, TSH, T4, iron, ferritin downstairs on the way out of the office today. RTO 1 year and sooner as needed or pending above. Discussed that we will want her to obtain at least yearly hemoglobin A1c but I will await the above lab results before deciding what to order next year. Future Tests Future scheduled test information is unavailable Pending Tests Test Name Ordered Date Scheduled Date Hemoglobin A1c October 08, 2025 12:47pm Estimated Average GlucoseDecember 2024 12:47pm Future Visits Future appointment information is unavailable Future Procedures Procedure Name Ordered Date Scheduled Date A1C with Estimated Average Glu October 08 11:49am October 08, 2025 12:47pm Future Medications Future medication information is unavailable Patient Instructions Patient instructions are unavailable
[2025-10-19 10:48] VITALS: BP 173/95; PULSE 125; TEMP 36.9; O2SAT 96; BMI 46.2
--- NOTE | 2025-10-19 11:10 | ECG_ITS ---
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 Measurements Intervals Wilson Rate: 111 P: 47 RI: 178 QRS: 124 QRSD: 96 T: 46 QT: 336 QTc: 402 Interpretive Statements 1120 Sinus tachycardia [address] elevation 5120 Possible right ventricular hypertrophy 9140 abnormal rhythm ECG Compared to ECG 10/07/2023 12:08:50 ST (T wave) deviation now present Atrial flutter no longer present Incomplete right bundle-branch block no longer present Electronically Signed On 10-20-2025 10:23:27 EST by WAYNE DAVID M.D.
--- NOTE | 2025-10-19 11:11 | XR_ITS ---
The [address] [address] Patient Name: ALEJANDRO WILBURN MRN: [id number] date: 1985 Sex: M Assigned Patient Location: ED.MAIN Current Patient Location: ED.MAIN Accession/Order Number: [id number] Exam Date: 10/19/2025 11:40 Report Date: 10/19/2025 12:04 At the request of: SENA RODRIGUEZ MD Procedure: XR chest 1V XR chest 1V 10/19/2025 11:43 AM SIGNS AND SYMPTOMS: ^Hypertension ^Y PROTOCOL: Frontal radiograph of the chest COMPARISON: The 10/06/2023 FINDINGS: The trachea is midline. The heart and mediastinal structures are within normal limits. The lung parenchyma is clear. The bony thorax is intact. XR/XR chest 1V IMPRESSION: No acute cardiopulmonary pathology. Impression dictated by: Dimitry Mcgill M.D. 10/19/2025 12:04 PM Dictation Location: [employer] ArtsFORMERLY KITT[facility] COMMUNITY HOSPITALCurrent Media Electronically authenticated by: [id number] Date: 10/19/2025 12:04
--- NOTE | 2025-10-19 11:11 | ED_ITS ---
HPI HPI - General Adult General Chief complaint: Recheck/Abnormal Lab/Rx Stated complaint: BLOOD PRESURE CHECK Time Seen by Provider: 10/19/25 11:02 Source: patient Mode of arrival: walk-in Limitations: no limitations History of Present Illness HPI narrative: 40-year-old male presents for elevated blood pressure. He has a history of hypertension and his blood pressure has been running high recently. He had been on diltiazem 120 mg and was increased to 180 mg within the last week. He does not seem to have any symptoms. Earlier in the day his right arm was hurting but it does not now. No chest pain. Related Data Home Medications ?Medication ?Instructions ?Recorded ?Confirmed diltiazem HCl 180 mg mg PO 10/19/25 capsule,extended release 24 hr, controlled (DILT-XR) Previous Rx's ?Medication ?Instructions ?Recorded apixaban 5 mg tablet (Eliquis) 5 mg PO BID #60 tabs metoprolol tartrate 50 mg tablet 50 mg PO BID #60 tabs 10/07/23 Allergies Allergy/AdvReac Type Severity Reaction Status Date / Time No Known Drug Allergies Allergy Verified 10/19/25 10:54 Review of Systems ROS Narrative A ten point review of systems is negative except as noted above. [facility] Medical History (Updated 10/19/25 @ 12:17 by Jg Connelly MD) Morbid obesity ?E66.01 - Morbid (severe) obesity due to excess calories (ICD-10) QUINTEN (obstructive sleep apnea) ?G47.33 - Obstructive sleep apnea (adult) (pediatric) (ICD-10) Atrial flutter with rapid ventricular response ?I48.92 - Unspecified atrial flutter (ICD-10) Paroxysmal atrial flutter ?I48.92 - Unspecified atrial flutter (ICD-10) Afib ?I48.91 - Unspecified atrial fibrillation (ICD-10) Atrial flutter ?I48.92 - Unspecified atrial flutter (ICD-10) Palpitations ?R00.2 - Palpitations (ICD-10) Family History (Updated 10/06/23 @ 23:20 by Eleni Jeffrey RN) Father Family history of diabetes mellitus Other Family history of COPD (chronic obstructive pulmonary disease) Social History Smoking status: Never smoker Highest level of school completed/degree received: Associate degree: occupational, technical, vocational program Little interest or pleasure in doing things: not at all Feeling down, depressed, or hopeless: not at all Exam Narrative Exam Narrative: Nurses note and vital signs reviewed General:The patient appears well and in no apparent distress.Patient is resting comfortably on cart. Skin:Warm, dry, no pallor noted.There is no rash noted. Head:Normocephalic, atraumatic Eye: Normal conjunctiva, no drainage Ears, Nose, Mouth, and Throat: oral mucosa is moist. Nares patent. Cardiovascular:Regular Rate and Rhythm, mildly tachycardic Respiratory:Patient is in no distress, no accessory muscle use, lungs are clear to auscultation, no wheezing, rales or rhonchi Back:non-tender, no CVA tenderness bilaterally to percussion. GI: Soft and nontender Musculoskeletal: The patient has no evidence of calf tenderness, no pitting edema, symmetrical pulses noted bilaterally Neurological:A&O, normal speech Psychiatric:Cooperative Constitutional Vital Signs, click to edit/add: Last Vital Signs Temp 98.4 F 10/19/25 10:48 Pulse 104 H 10/19/25 11:32 Resp 15 10/19/25 11:32 BP 123/82 10/19/25 12:07 Pulse Ox 96 10/19/25 10:48 Course Vital Signs Vital signs: Vital Signs Temperature 98.4 F 10/19/25 10:48 Pulse Rate 125 H 10/19/25 10:48 Respiratory Rate 18 10/19/25 10:48 Blood Pressure 173/95 H 10/19/25 10:48 Pulse Oximetry 96 10/19/25 10:48 Temperature 98.4 F 10/19/25 10:48 Pulse Rate 104 H 10/19/25 11:32 Respiratory Rate 15 10/19/25 11:32 Blood Pressure 123/82 10/19/25 12:07 Pulse Oximetry 96 10/19/25 10:48 Medical Decision Making [facility] Narrative Medical decision making narrative: His blood pressure came down appropriately without any intervention and his workup is negative. 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 Treatment diagnosis and follow-up were discussed with the patient. Differential Diagnosis Differential Diagnosis: Hypertension, anxiety Lab Data Lab results reviewed: Yes I reviewed the patient's lab results Labs: Lab Results 10/19/25 Range/Units 11:20 WBC 11.3 H (4.0-11.0) 10^3/uL RBC 4.77 (4.70-6.10) 10^6/uL Hgb 14.8 (14.0-18.0) g/dL Hct 44.3 (42.0-54.0) % MCV 92.9 (80.0-94.0) fL MCH 31.0 (25.9-34.0) pg MCHC 33.4 (29.9-35.2) g/dL RDW 13.1 (11.0-15.0) % Plt Count 284 (150-450) 10^3/uL MPV 9.9 (9.5-13.5) fL Neut % (Auto) 70.3 (43.0-75.0) % Lymph % (Auto) 22.8 (20.5-60.0) % [place] % (Auto) 4.2 (1.7-12.0) % Eos % (Auto) 1.9 (0.9-7.0) % Baso % (Auto) 0.4 (0.2-2.0) % Neut # (Auto) 8.0 H (1.4-6.5) 10^3/uL Lymph # (Auto) 2.6 (1.2-3.8) 10^3/uL [place] # (Auto) 0.5 (0.3-0.8) 10^3/uL Eos # (Auto) 0.2 (0.0-0.7) 10^3/uL Baso # (Auto) 0.0 (0.0-0.1) 10^3/uL Abs Immat Gran (auto) 0.05 H (0.00-0.03) 10^3/uL Imm/Tot Granulo (auto) 0.4 (0.0-0.5) % Sodium 140 (136-145) mmol/L Potassium 4.0 (3.5-5.1) mmol/L Chloride 102 (98-107) mmol/L Carbon Dioxide 27.9 (21.0-32.0) mmol/L Anion Gap 14.1 BUN 8.0 (7.0-18.0) mg/dL Creatinine 1.11 (0.70-1.30) mg/dL Est GFR ( Amer) >60 (>=60 mL/min/1.73m^2) Est GFR (Non-Af Amer) >60 (>=60 mL/min/1.73m^2) BUN/Creatinine Ratio 7.2 Glucose 298 H (74-106) mg/dL Calcium 8.3 L (8.5-10.1) mg/dL Troponin I High Sens 14.1 (4.0-76.1) pg/mL Imaging Data Chest x-ray: Radiologist's impression: ITS Impressions Chest X-Ray 10/19/25 11:11 IMPRESSION: No acute cardiopulmonary pathology. Impression dictated by: Dimitry Mcgill M.D. 10/19/2025 12:04 PM Dictation Location: [email or web address] Electronically authenticated by: [id number] Y Date: 10/19/2025 12:04 ECG Data Attestation: I personally reviewed and interpreted this ECG as follows: (EKG on my interpretation shows sinus rhythm with rate of 111.) Discharge Plan Discharge Chief Complaint: Recheck/Abnormal Lab/Rx Clinical Impression: Hypertension Patient Disposition: Home, Self-Care Time of Disposition Decision: 12:17 Condition: Good Mode of Transportation: Private Vehicle Prescriptions / Home Meds: No Action diltiazem HCl [DILT-XR] 180 mg capsule,ext.rel 24h degradable PO Eliquis 5 mg Tablet 5 mg PO BID Qty: 60 0RF metoprolol tartrate 50 mg Tablet 50 mg PO BID Qty: 60 0RF Print Language: Tamazight Instructions: Chronic Hypertension (ED) Referrals: Physician,Non-Staff, MD [Primary Care Provider] - 1 week
[2025-10-19 11:16] VITALS: PULSE 111
[2025-10-19 11:18] VITALS: BP 158/101; PULSE 106
--- OUTSIDE RECORDS SUMMARY | 2025-10-19 11:19 | XMS_ITS | Clinical Summary ---
Author Organization [facility] Address [address] [place] [address], [address] [place] [address] Care Team Providers Care Brake Adjuster Name Role Phone Unavailable Primary Care Provider Unavailabl e Social History Tobacco UseTypesPacks/DayYears UsedDateSmoking Tobacco: Never AssessedSex and Gender InformationValueDate RecordedSex Assigned at BirthNot on fileLegal Sex Male12/19/2012 8:30 PM ESTGender IdentityNot on fileSexual OrientationNot on file Plan of Treatment Not on file
--- OUTSIDE RECORDS SUMMARY | 2025-10-19 11:20 | XMS_ITS | Clinical Summary ---
Author Organization [facility] Address [address] [place] [address] Care Team Providers Care Reverse Unit Operator Name Role Phone More Watson DO Primary Care Provider Social History Tobacco UseTypesPacks/DayYears UsedDateSmoking Tobacco: Never AssessedSex and Gender InformationValueDate RecordedSex Assigned at BirthNot on fileLegal Sex Male01/19/2023 7:08 PM EDTGender IdentityNot on fileSexual OrientationNot on file Last Filed Vital Signs Vital SignReadingTime TakenCommentsBlood Ceeiunxa382/80007/01/2022 12:00 PM EDT Pulse--Temperature--Respiratory Rate--Oxygen Saturation--Inhaled Oxygen Concentration--Urkeoi254 kg (378 lb)07/01/2022 12:00 PM EZSLbxvif882 cm (6' 4 ) 07/01/2022 12:00 PM EDTBody Mass Index46.01007/01/2022 12:00 PM EDT Plan of Treatment Not on file Care Teams Team MemberRelationshipSpecialtyStart DateEnd Date More Watson DO PCP - GeneralFamily Medicine03/15/23
[2025-10-19 11:32] VITALS: BP 130/90; PULSE 104
[2025-10-19 11:41] LABS: Hematocrit 44.3 % (42.0-54.0); Hemoglobin 14.8 g/dL (14.0-18.0); Immature Granulocytes Abs Auto 0.05 10^3/uL (0.00-0.03); Immature Granulocytes Pct Auto 0.4 % (0.0-0.5); Lymphocytes Absolute Auto 2.6 10^3/uL (1.2-3.8); Mean Corpuscular HGB Conc 33.4 g/dL (29.9-35.2); Mean Corpuscular Hemoglobin 31.0 pg (25.9-34.0); Mean Corpuscular Volume 92.9 fL (80.0-94.0); Platelet Count 284 10^3/uL (150-450); Red Blood Count 4.77 10^6/uL (4.70-6.10); White Blood Count 11.3 10^3/uL (4.0-11.0)
[2025-10-19 11:49] LABS: Anion Gap 14.1; Blood Urea Nitrogen 8.0 mg/dL (7.0-18.0); Calcium 8.3 mg/dL (8.5-10.1); Carbon Dioxide 27.9 mmol/L (21.0-32.0); Chloride 102 mmol/L (98-107); Estimated GFR (African America >60 (>=60 mL/min/1.73m^2); Estimated GFR (Non-African Ame >60 (>=60 mL/min/1.73m^2); Glucose 298 mg/dL (74-106); Potassium 4.0 mmol/L (3.5-5.1); Sodium 140 mmol/L (136-145)
[2025-10-19 12:07] VITALS: BP 123/82
== END 2025-10-19 12:29 | disposition home or self-care (01) ==
PROVIDERS: Emergency Provider Emergency Medicine
DX: I10 Essential (primary) hypertension (principal); Z79.899 Other long term (current) drug therapy
CPT/HCPCS: 36415; 71045; 80048; 84484; 85025; 93005; 99284; 99285